=== PATIENT | female | born 1960 | race Hispanic/Latino ===

== ENCOUNTER 2018-02-28 18:51 | Emergency (ER) | payer MEDICARE ==
[~2018-02-28] VITALS: Ht 160 cm; Wt 75.7 kg
[~2018-02-28 18:51] MED LIST: ASPIRIN81 MG PO; CARVEDILOL12.5 MG PO; FUROSEMIDE40 MG PO; HUMALOG100 UNIT/3 SQ; HYDRALAZINE HCL25 MG PO; INSULIN DEGLUDEC; LIPITOR20 MG PO; LYRICA PO; PROCARDIA XL30 MG PO; RENVELA0.8 GM PO; VANCOMYCIN PO
[2018-02-28] MEDS ORDERED: ONDANSETRON HCL INJ 2 MG/ML VIAL IV STA (19:05)
[2018-02-28] MEDS ORDERED: MORPHINE SULFATE INJ 4 MG/ML INJ IV STA (19:05)
[2018-02-28 19:26] LABS: BASOPHILS % 0.3 % (0.0-1.0); EOSINOPHILS # (AUTO) 0.2 (0.0-0.4); EOSINOPHILS % 1.7 % (0.0-6.0); HEMOGLOBIN 11.9 g/dL (12.0-16.0); LYMPHOCYTES # (AUTO) 2.1 (1.0-3.2); LYMPHOCYTES % 22.5 % (18.0-39.1); MEAN CORPUSCULAR HEMOGLOBIN 32.1 pg (28-32); MEAN CORPUSCULAR VOLUME 94.3 fL (81-99); MONOCYTES # (AUTO) 0.5 (0.2-0.8); MONOCYTES % 5.2 % (4.4-11.3); NEUTROPHILS # (AUTO) 6.5 (2.1-6.9); NEUTROPHILS % 69.7 % (38.7-80.0); PLATELET COUNT 125 x10e3/uL (140-360); RED BLOOD COUNT 3.71 x10e6/uL (3.6-5.1); RED CELL DISTRIBUTION WIDTH 14.3 % (11.7-14.4)
[2018-02-28 19:29] LABS: CLARITY,URINE CLEAR (CLEAR); COLOR,URINE YELLOW (YELLOW)
[2018-02-28 19:30] LABS: INR 1.1; LEUKOCYTE ESTERASE ,URINE NEGATIVE (NEGATIVE); PROTHROMBIN TIME 13.4 seconds (11.9-14.5)
[2018-02-28 19:31] LABS: NITRITE,URINE NEGATIVE (NEGATIVE); PARTIAL THROMBOPLASTIN TIME 28.1 seconds (23.8-35.5); PROTEIN,URINE DIPSTICK 3+ (NEGATIVE)
[2018-02-28 19:32] LABS: BILIRUBIN,URINE NEGATIVE (NEGATIVE); KETONES,URINE NEGATIVE (NEGATIVE); URINE UROBILINOGEN 0.2 mg/dL (0.2 - 1)
[2018-02-28 19:35] LABS: BACTERIA,URINE FEW /HPF; EPITHELIAL CELLS,URINE FEW /LPF; WBC,URINE (MAN) 0-5 /HPF (0-5)
[2018-02-28 19:41] LABS: ALBUMIN 3.3 g/dL (3.5-5.0); ANION GAP 17.1 mmol/L (8-16); CALCIUM 8.1 mg/dL (8.4-10.2); CREATININE, SERUM 6.97 mg/dL (0.57-1.11); MAGNESIUM 1.7 MG/DL (1.3-2.1); POTASSIUM 4.1 mmol/L (3.5-5.1)
[2018-02-28 19:47] LABS: CREATINE KINASE MB 1.6 ng/mL (0-5.0)
[2018-02-28] MEDS ORDERED: FENTANYL CITRATE/PF 100MCG/2 ML INJ IV ONE (20:00)
--- NOTE | 2018-02-28 20:07 | Diagnostic Imaging Report ---
EXAM: CT ABDOMEN AND PELVIS without IV CONTRAST INDICATION: Abdominal pain, right flank pain COMPARISON: None TECHNIQUE: The abdomen and pelvis were scanned using a multidetector helical scanner. Coronal and sagittal reformations were obtained. Renal stone protocol performed. IV Contrast: None Oral Contrast: None CTDIvol has been reviewed. It is below the limits set by the Radiation Protocol Committee (RPC). FINDINGS: LOWER THORAX: Small bilateral pleural effusions with adjacent atelectasis. Partially visualized small pericardial effusion. LIVER: No masses BILIARY: Cholecystectomy. No abnormal ductal dilation. SPLEEN: No masses PANCREAS: No masses ADRENALS: No nodules RIGHT KIDNEY: Punctate nonobstructing stones versus vascular calcifications. No hydroureteronephrosis. Mild perinephric fat stranding. Questionable 3 cm lesion in the inferior pole of the right kidney versus lobulated contour. LEFT KIDNEY: Punctate nonobstructing stones versus basilar calcifications. No hydroureteronephrosis. Mild perinephric fat stranding. GI TRACT: No wall thickening or obstruction. Nonspecific debris within the stomach. The appendix is not identified. There is a round calcification in the cecum that could be calcification or prior oral contrast administration in a diverticulum. There are no inflammatory changes in the right lower quadrant to suggest acute appendicitis or diverticulitis. VESSELS: Moderate atherosclerotic changes of the abdominal aorta without aneurysm. PERITONEUM/RETROPERITONEUM: No free air or fluid LYMPH NODES: No lymphadenopathy REPRODUCTIVE ORGANS: Normal BLADDER: Decompressed, unremarkable. SOFT TISSUES: Normal BONES: No suspicious bone lesions. IMPRESSION: 1. Bilateral punctate nonobstructing renal stones versus vascular calcifications. No hydroureteronephrosis. 2. Small bilateral pleural effusions with adjacent atelectasis. 3. Questionable 3 cm lesion in the inferior pole of the right kidney versus lobulated renal contour. Nonemergent renal ultrasound is recommended for further evaluation. Signed by: Dr. Rena Willams M.D. on 02/28/2018 8:04 PM
--- NOTE | 2018-02-28 20:08 | Diagnostic Imaging Report ---
EXAM: CHEST SINGLE (PORTABLE), AP 1 view INDICATION: Abdominal pain, right flank pain COMPARISON: None FINDINGS: LINES/TUBES: None LUNGS: Bibasilar atelectasis. PLEURA: Small bilateral pleural effusions. HEART AND MEDIASTINUM: Normal size and contour. BONES AND SOFT TISSUES: No acute findings. IMPRESSION: Small bilateral pleural effusions and bibasilar atelectasis. Signed by: Dr. Rena Willams M.D. on 02/28/2018 8:05 PM
[2018-02-28] MEDS ORDERED: INSULIN REGULAR, HUMAN 100 UNIT/1 ML 3ML VIAL SQ ONE (20:30)
[2018-02-28 22:17] VITALS: BP 182/81
== END 2018-02-28 22:20 | disposition home or self-care (01) ==
LOC: ER 18:51
DX: R10.11 Right upper quadrant pain (principal); R11.0 Nausea; I12.0 Hypertensive chronic kidney disease with stage 5 chronic kidney disease or end stage renal disease; E11.22 Type 2 diabetes mellitus with diabetic chronic kidney disease; E11.65 Type 2 diabetes mellitus with hyperglycemia; Z99.2 Dependence on renal dialysis
CPT/HCPCS: 36415; 71045; 74176; 80053; 81001; 82150; 82550; 82553; 83690; 83735; 83880; 84484; 85025; 85610; 85730; 87086; 99284; J2405

== ENCOUNTER 2019-09-22 18:55 | Emergency (ER) | payer MEDICARE ==
[~2019-09-22] VITALS: Ht 160 cm; Wt 75.7 kg
--- OUTSIDE RECORDS SUMMARY | 2019-09-22 18:59 | XMS REPORT | Summary of Care ---
Author Author KAI MORENO N.P. Unknown Address Unknown Phone Unavailable Care Team Providers Care Fender Finisher Name Role Phone Kelley Rose MD Unavailable Unavailable Functional Status Name Dates Details Functional status health issues are not documented Status: Name Dates Details Cognitive status health issues are not documented Status: Problems Name Dates Details S/P CABG x 2 (V45.81, Z95.1) Status: Active Medications Name Dates Details Catapres 0.1 MG Oral Tablet M.A. Active Carvedilol TABS * Refills: 0 M.A. Active hydrALAZINE HCl TABS * Refills: 0 M.A. Active Atorvastatin Calcium TABS * Refills: 0 M.A. Active Aspirin 81 MG Oral Tablet Delayed Release * Refills: 0 M.A. Active NIFEdipine CAPS * Refills: 0 M.A. Active Digoxin TABS * Refills: 0 M.A. Active Probiotic TBEC * Refills: 0 M.A. Active Plavix 75 MG Oral Tablet * Refills: 0 M.A. Active Allergies and Adverse Reactions Name Dates Details No Known Drug Allergies (Allergy) Status: Active Past Medical History Name Dates Details History of Diabetes mellitus due to underlying condition with diabetic peripheral angiopathy and gangrene, with long-term current use of insulin (249.70, E08.52) Status: Resolved History of hypertension (V12.59, Z86.79) Status: Resolved History of kidney disease (V13.09, Z87.448) Status: Resolved Procedures Procedure Dates Details US Echocardiogram [id number] Date: 01-Jul-2019 History of Bypass graft Completed Immunization Name Dates Details Immunizations not documented Social History Name Dates Details - Status: Name Dates Details Former smoker Vital Signs Date Test Result Details [id number] BP Systolic 177 mm[Hg] Status: BP Diastolic 70 mm[Hg] Status: Height 63 in Status: Weight 155 lb Status: Body Mass Index Calculated 27.46 kg/m2 Status: Body Surface Area Calculated 1.74 m2 Status: Heart Rate 68 /min Status: O2 SAT 96 % Status: Results Date Description Value Details [id number] XRAY Chest 2 views [id number] Chest 2 views SEE NOTES Comments: EXAM: XR CHEST 2 VIEWSDATE: 07/01/2019 13:18 CSTINDICATION: Z95.1 Presence of aortocoronary bypass graft - Z95.1 Presenceof aortocoronary bypass graftCOMPARISON: 05/25TECHNIQUE: PA and lateral chest radiographsFINDINGS: Median sternotomy sutures. Moderate left pleural effusion with leftlower lobe atelectasis versus consolidation. Mild right pleural effusion.IMPRESSION: Median sternotomy sutures.Moderate left pleural effusion with left lower lobe atelectasis versusconsolidation. Mild right pleural effusion.--Read by: Tom Foreman MDDictated Date/time: 07/01/19 13:35Electronically Signed by: Tom Foreman MD 07/01/1913:36FINAL REPORT Plan of Care Name Dates Details Planned Observations Planned Goals not documented Instructions Name Dates Details Instructions not documented Encounters Appointment; KELLEY ROSE M.D. Encounter Diagnosis: Problem not documented On: 01-Jul-2019 12:00
[2019-09-22] MEDS ORDERED: DILTIAZEM HCL VIAL 5 ML ONE (19:42)
[2019-09-22] MEDS ORDERED: DILTIAZEM HCL 5 MG/ML 5 ML VIAL IV STA ×2 (19:44→20:05)
[2019-09-22 19:49] LABS: BASOPHILS % 0.5 % (0.0-1.0); EOSINOPHILS % 0.6 % (0.0-6.0); HEMATOCRIT 38.7 % (34.2-44.1); HEMOGLOBIN 12.6 g/dL (12.0-16.0); LYMPHOCYTES % 16.3 % (18.0-39.1); MEAN CORPUSCULAR HEMOGLOBIN 30.6 pg (28-32); MEAN CORPUSCULAR HGB CONC 32.6 g/dL (31-35); MEAN CORPUSCULAR VOLUME 93.9 fL (81-99); MONOCYTES # (AUTO) 0.5 (0.2-0.8); MONOCYTES % 7.4 % (4.4-11.3); NEUTROPHILS # (AUTO) 4.8 (2.1-6.9); NEUTROPHILS % 74.9 % (38.7-80.0); PLATELET COUNT 134 x10e3/uL (140-360); RED BLOOD COUNT 4.12 x10e6/uL (3.6-5.1); RED CELL DISTRIBUTION WIDTH 13.8 % (11.7-14.4)
[2019-09-22 20:06] LABS: ALBUMIN 2.8 g/dL (3.5-5.0); ALBUMIN/GLOBULIN RATIO 0.7 (0.8-2.0); ANION GAP 18.8 mmol/L (8-16); CREATININE, SERUM 4.64 mg/dL (0.57-1.11); POTASSIUM 3.8 mmol/L (3.5-5.1)
[2019-09-22 20:13] LABS: CREATINE KINASE MB 1.4 ng/mL (0-5.0)
--- NOTE | 2019-09-22 21:21 | Diagnostic Imaging Report ---
EXAMINATION: CHEST SINGLE (PORTABLE) COMPARISON: Chest x-ray 02/28/2018 INDICATION: Shortness of breath, palpitations ^a fib ^[id number] ^[id number] DISCUSSION: Frontal view of the chest obtained at 1 hours. HEART AND MEDIASTINUM: Cardiomegaly and cardiac bypass changes. LINES: None. LUNGS: Bibasilar groundglass airspace opacities, left lung greater than right. No interstitial edema. PLEURA: Blunting of the left lateral costophrenic angle. No pneumothorax BONES AND SOFT TISSUES: Median sternotomy wires are intact.. The soft tissues are normal. IMPRESSION: Cardiomegaly without evidence of CHF. Bibasilar airspace opacities suggestive of atelectasis or infiltrate. Blunting of the left costophrenic angle suggestive of pleural effusion. A small right pleural effusion cannot be excluded. Signed by: Dr. Wei Kemp MD on 09/22/2019 9:18 PM
[2019-09-22] MEDS ORDERED: AMIODARONE 900MG 500 ML IV STA (22:06)
[2019-09-23 01:17] VITALS: BP 166/54
== END 2019-09-23 02:10 | disposition home or self-care (01) ==
LOC: ER 18:55
DX: R00.2 Palpitations (principal); I48.0 Paroxysmal atrial fibrillation; E11.9 Type 2 diabetes mellitus without complications; Z99.2 Dependence on renal dialysis; I10 Essential (primary) hypertension; I25.10 Atherosclerotic heart disease of native coronary artery without angina pectoris
CPT/HCPCS: 36415; 71045; 80053; 82550; 82553; 84484; 85025; 93005; 96376; 99284

== ENCOUNTER 2020-07-25 10:00 | Inpatient (IN) | payer MEDICARE ==
[2020-07-25] VITALS (10 sets, daily range): BP systolic 114–142; BP diastolic 56–86
[~2020-07-25] VITALS: Ht 160 cm; Wt 75.7 kg
--- OUTSIDE RECORDS SUMMARY | 2020-07-25 10:06 | XMS REPORT | Clinical Summary ---
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 Active carvedilol (COREG) 25 MG Take 1 tablet 3 12/02 tablet by mouth 2 8 (two) times a day. Active furosemide (LASIX) 80 mg Take 1 tablet 0 02/08 tablet by mouth 2 8 (two) times a day. Active sevelamer (RENVELA) 800 Take 2,400 mg 0 mg tablet by mouth 3 (three) times a day. Active aspirin (ECOTRIN) 81 MG Take 81 mg by 0 enteric coated tablet mouth daily. Active insulin ASPART (NovoLOG) Inject 2-8 0 100 unit/mL injection Units under the skin 3 (three) times a day as needed. Active hydrALAZINE (APRESOLINE) Take 100 mg 0 100 MG tablet by mouth 2 (two) times a day. Active doxazosin (CARDURA) 4 MG Take 4 mg by 0 tablet mouth nightly. Active clonIDINE HCl (CATAPRES) Take 0.3 mg 3 03/29 0.3 MG tablet by mouth 9 every evening. Active clopidogrel (PLAVIX) 75 TAKE 1 TABLET 3 mg tablet BY MOUTH ONCE 9 DAILY FOR 30 DAYS Active Problems Problem Noted Date Other specified diabetes mellitus with diabetic chron ic kidney disease 06/07/2019 Renal mass 09/09/2018 ESRD (end stage renal disease) 09/09/2018 Hypertensive urgency 03/05/2018 Surgical History Surgery Date Site/Laterality Comments SECTION TONSILLECTOMY CHOLECYSTECTOMY DIALYSIS FISTULA [employer]ATION Medical History Medical History Date Comments Hypertension Dialysis patient (HCC) Diabetes mellitus (HCC) Social History Date Tobacco Use Types Packs/Day Years Used Never Smoker Smokeless Tobacco: Never Used Drinks/Week oz/Week Comments Alcohol Use No Sex Assigned at Date Recorded Not on file Last Filed Vital Signs Not on file Plan of Treatment Health Maintenance Due Date Last Done Comments DIABETES: RETINAL EYE 1968 EXAM DIABETIC FOOT EXAM 1968 CERVICAL CANCER SCREENING 12/15/1979 BREAST CANCER SCREENING 2008 COLONOSCOPY SCREENING 2008 SHINGLES VACCINES (#1) 2008 INFLUENZA VACCINE 03/24/2020 Results Not on fileafter 07/25/2019 Insurance Type Payer Benefit Subscriber ID Effective Phone Address Plan / Dates Group Medicare MEDICARE MEDICARE [id number] 2016- [place], PART [place] AND Present [place] Commercial AAR AAR [id number] 2017- SUPPLEMENT Present Advance Directives For more information, please contact: [phone] 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
--- OUTSIDE RECORDS SUMMARY | 2020-07-25 10:06 | XMS REPORT | Clinical Summary ---
Author Author [facility] Organization [facility] Address Unknown Phone Unavailable Care Team Providers Care Auto [employer] Salesperson Name Role Phone PCP Unavailable Allergies No Known Allergies Medications End Date Status Medication Sig Dispensed Refills Start Date Active ASPIRIN EC 81 mg delayed Take 1 tablet 30 tablet 3 release by mouth 5 tabletIndications: Type 2 daily. diabetes with nephropathy Active carvedilol (COREG) 12.5 Take 1 tablet 180 tablet 3 mg tabletIndications: HTN by mouth 2 5 (hypertension), benign times daily (with meals). Active azelastine (OPTIVAR) 0.05 Instill 1 6 mL 3 % ophthalmic Drop in each 5 solutionIndications: eye 2 times Allergic conjunctivitis, daily. unspecified laterality Active hydrALAZINE (APRESOLINE) Take 1 tablet 270 tablet 0 25 mg tabletIndications: by mouth 3 6 HTN (hypertension), times daily. benign Active atorvastatin (LIPITOR) 40 Take 1 tablet 30 tablet 0 03/05/201 mg tabletIndications: by mouth at 6 Type 2 diabetes with bedtime nephropathy nightly Please see PCP for further refills. Active cyclobenzaprine Take 1 tablet 30 tablet 0 03/26/20 1 (FLEXERIL) 10 mg by mouth 3 6 tabletIndications: Back times daily pain, unspecified back as needed for location, unspecified Muscle back pain laterality, Spasms. unspecified chronicity Active traMADol (ULTRAM) 50 mg Take 1 tablet 15 tablet 0 tabletIndications: Back by mouth 6 pain, unspecified back every 8 hours location, unspecified as needed for back pain laterality, Pain Use this unspecified chronicity medication as needed only if pain is unrelieved with Gabapentin and Flexeril.. Active NOVOLIN 70/30 100 unit/mL Inject 20 90 mL 1 (70-30) Units under 6 injectionIndications: the skin 2 Type 2 diabetes with times daily nephropathy (before meals). Active furosemide (LASIX) 40 mg Take 2 60 tablet 2 0 tabletIndications: Acute tablets by 6 on chronic diastolic mouth 2 times congestive heart failure daily. Active warfarin (COUMADIN) 7.5 Take 1 tablet 30 tablet 0 mg tabletIndications: by mouth 6 Thrombophlebitis daily (warfarin). Active polyethylene glycol Add lukewarm 4000 mL 0 05/18 (GOLYTELY) 236-22.74-6.74 drinking 6 -5.86 gram oral water to the solutionIndications: fill sher (4 Positive occult stool liters) and blood test shake. Drink as directed by your doctor.. Active sevelamer carbonate Take 4 110 tablet 1 (RENVELA) 800 mg tablet tablets by 6 mouth 3 times daily. Active gabapentin (NEURONTIN) Take 1 30 capsule 0 300 mg capsule by 6 capsuleIndications: mouth 3 times Peripheral neuropathic daily. pain Active Problems Problem Noted Date Positive occult stool blood test 05/18/2016 Type 2 diabetes mellitus with stage 4 chronic kidney disease, with 05/01/2016 long-term current use of insulin Thrombophlebitis 04/17/2016 Chest pain 04/05/2016 CHF (congestive heart failure) 04/02/2016 SOB (shortness of breath) 04/01/2016 Abnormal breast finding in 2004 05/28/2015 HTN (hypertension), benign 05/04/2015 Bilateral edema of lower extremity 05/04/2015 DM w/o complication type II 05/04/2015 CKD (chronic kidney disease) 05/04/2015 Preventative health care 05/04/2015 Congestive heart failure ESRD (end stage renal disease) Immunizations Name Administration Dates Next Due Pneumococcal 13-valent 03/26/2016 (Deferred: Contr aindication) conj 0.5 mL injection Family History Medical History Relation Name Comments Seizures Brother Stroke Brother Cancer Father Diabetes Father Hypertension Father Pulmonary Father Diabetes Mother Heart Mother Hypertension Mother Diabetes Sister Relation Name Status Comments Brother Alive Brother Alive Brother Daughter Alive Father Maternal Grandfather Maternal Grandmother Mother Paternal Grandfather Paternal Grandmother Sister Alive Sister Sister Son Alive Son Alive Social History Date Tobacco Use Types Packs/Day Years Used Never Smoker Smokeless Tobacco: Never Used Tobacco Cessation: Counseling Given: No Drinks/Week oz/Week Comments Alcohol Use 0 Standard drinks or equivalent 0.0 No Sex Assigned at Date Recorded Not on file Industry Job Start Date Occupation Not on file Not on file Not on file Travel End Travel History Travel Start No recent travel history available. Last Filed Vital Signs Not on file Plan of Treatment Health Maintenance Due Date Last Done Comments HPV Cervical Cancer Scrn 1988 Pap Cervical Cancer Scrn 11/04/2006 11/04/2001 Breast Cancer Scrn 06/08/2016 06/08/2015 (Yearly) DM Retinal Exam (Yearly) 08/29/2016 08/29/2015 DM Foot Exam (Yearly) 03/26/2017 03/26/2016 DM HGBA1C (Yearly) 03/27/2017 03/27/2016, 05/04/2015, 06/06/2003, Additional history exists Colorectal Cancer Scrn 05/14/2017 05/14/2016 Annual (FIT/FOBT) Age 50 to 75 DM Microalbumin Urine 06/27/2017 06/27/2016, Scrn (Yearly) 06/27/2016, 06/27/2016, Additional history exists Results Not on fileafter 07/25/2019 Insurance Type Payer Benefit Subscriber ID Effective Phone Address Plan / Dates Group MEDICARE MEDICARE xxxxxxxxxx 2016- [phone] [address] Present [id number] [place] [address] [employer] MEDICA[employer] HMO [employer] xxxxxxxxx 2016- [address] Present [address] [place] [id number] Advance Directives Date Inactivated Comments Code Status Date Activated 04/17/2016 4:48 PM Full Code 04/02/2016 4:05 AM
--- OUTSIDE RECORDS SUMMARY | 2020-07-25 10:06 | XMS REPORT | Clinical Summary ---
Author Author [facility] Address Unknown Phone Unavailable Care Team Providers Care Music Educator Name Role Phone Sharpless PCP Anna Crystal MD 24 Allergies Comments Active Allergy Reactions Severity Noted Date Morpholine Analogues 02/04/2017 Medications End Date Status Medication Sig Dispensed Refills Start Date Active hydrALAZINE (APRESOLINE) Take 100 mg 0 100 MG tablet by mouth 3 (three) times daily . Active sevelamer (RENVELA) 800 Take 3,200 mg 0 mg tablet by mouth 3 (three) times daily with meals. Active atorvastatin (LIPITOR) 40 Take 40 mg by 0 MG tablet mouth daily. Active amLODIPine (NORVASC) 10 Take 10 mg by 0 MG tablet mouth daily. Active furosemide (LASIX) 40 MG Take 80 mg by 0 tablet mouth 2 (two) times daily . Active carvedilol (COREG) 12.5 Take 25 mg by 0 05/14/ 201 MG tablet mouth 2 (two) 5 times daily . Active aspirin 81 MG EC tablet Take 81 mg by 0 mouth. 5 Active doxazosin (CARDURA) 4 MG Take 4 mg by 0 tablet mouth nightly. Active insulin aspart (NOVOLOG) Inject 8 0 100 unit/mL injection Units subcutaneousl y 3 (three) times daily before meals. Active pregabalin (LYRICA) 75 MG Take 75 mg by 0 capsule mouth 3 (three) times daily. Active insulin degludec (TRESIBA Inject 40 0 FLEXTOUCH U-100) 100 Units unit/mL (3 mL) InPn subcutaneousl y once at bedtime. Active Problems Problem Noted Date Pre-transplant evaluation for end stage renal disease 02/04/2017 ESRD (end stage renal disease) 02/04/2017 Diabetic nephropathy associated with type 2 diabetes mellitus 02/04/2017 HTN (hypertension), benign 02/04/2017 Coronary artery disease involving nez perce coronary art franko of nez perce heart 02/04/2017 without angina pectoris Proliferative diabetic retinopathy of both eyes witho ut macular edema 02/04/2017 associated with type 2 diabetes mellitu s Diabetic polyneuropathy associated with type 2 diabet es mellitus 02/04/2017 Hyperlipidemia, unspecified hyperlipidemia type 01/22 Encounters Care Team Description Date Type Specialty Ralph Layne RN 07/23/2020 Documentation Transplant Ya Mann 05/30/2020 Documentation Transplant Mary Jo Tobar RN Kidney Transplant Pre-evaluation 05/11/2020 Telephone Transplant Sharlene Leo Appointment (Patient called stating she is returning a call back. I let pt know that she was contacted by her coord nurse Mary Jo Tobar but that her vmailbox was full. Pt given coord direct #. ) 05/11/2020 Telephone Transplant Mary Jo Tobar RN Kidney Transplant Evaluation 05/09/2020 Telephone Transplant Siva Madrigal 05/03/2020 Documentation Transplant Sharlene Leo 05/02/2020 Abstract Transplant Pre-transplant evaluation fo r chronic kidney disease (Primary Dx) 05/01/2020 Video - Transplant Telemedicine Sharlene Leo Appointment (Pt called in saying she wa s not able to get into the renal txp education class. After 10 seconds on the phone, pt stated she was finally able to get in.) 05/01/2020 Telephone Transplant Sharlene Leo 04/09/2020 Documentation Transplant Sharlene Leo Appointment (Patient called in to resche dule her missed renal txp education class. Pt rescheduled for 05/01 class. Requested log-in instructions mailed to her home address on file. ) 04/09/2020 Telephone Transplant Sharlene Leo Appointment (Cld patient to reschedule r enal txp virtual education class. No answer. Voicemail box full. No way to leave vmail msg.) 04/03/2020 Telephone Transplant Sharlene Leo 03/21/2020 Abstract Transplant Sharlene Leo Appointment (Cld patient to reschedule r enal txp education class. No answer. Left detailed voicemail msg and call back number.) 03/20/2020 Telephone Transplant Crissy Leoly 03/13/2020 Abstract Transplant Sharlene Leo 03/13/2020 Documentation Transplant Sharlene Leo 03/13/2020 Documentation Transplant Lolly Rice 03/12/2020 Documentation Transplant Sharlene Leo 03/08/2020 Documentation Transplant Crissy Leoly 03/08/2020 Documentation Transplant Yaritza Leoberly 03/02/2020 Documentation Transplant Sharlene Leo Appointment (Pt returned my call and was scheduled for her virtual education class for 03/13/20. Also completed updated medical Hx, surgical Hx. Will send email instructions.) 03/01/2020 Telephone Transplant Sharlene Leo Appointment (Called pt's daughter to pas s on msg or assist with scheduling renal txp virtual eduction class. No answer. Left detailed voicemail msg and contact numbers.) 03/01/2020 Telephone Transplant Sharlene Leo Appointment (Called patient to schedule virtual education and consent class. No answer. Voicemail box is full. No way to leave message. Will call daughter.) 03/01/2020 Telephone Transplant Leo Sharlene 03/01/2020 Abstract Transplant after 07/25/2019 Family History Medical History Relation Name Comments Diabetes Brother Cancer Father Diabetes Father at 80 years ag e - sepsis Hypertension Father Throat cancer Diabetes Mother at 48 years wi th massive [place] Hypertension Mother Diabetes Sister Diabetes Son Hypertension Son Relation Name Status Comments Brother Alive Father Mother Sister Alive Son Social History Date Tobacco Use Types Packs/Day Years Used Quit: 02/04/1987 Former Smoker Cigarettes Drinks/Week oz/Week Comments Alcohol Use No Sex Assigned at Date Recorded Not on file Last Filed Vital Signs Reading Time Taken Comments Vital Sign - - Blood Pressure - - Pulse - - Temperature - - Respiratory Rate - - Oxygen Saturation - - Inhaled Oxygen Concentration 76.1 kg (167 lb 12.3 oz) 03/07/2020 8:31 AM CDT Weight 158 cm (5' 2.21") 03/07/2020 8:31 AM CDT Height 30.48 03/07/2020 8:31 AM CDT Body Mass Index Plan of Treatment Not on file Results Not on fileafter 07/25/2019 Insurance Type Payer Benefit Subscriber ID Effective Phone Address Plan / Dates Group Medicare MEDICARE MEDICARE A [id number] 2016- B Present [facility] SUPPLEMENT/INDIVIDUAL AARP/UNITE [id number] 2016-P [facility] [id number]
--- OUTSIDE RECORDS SUMMARY | 2020-07-25 10:06 | XMS REPORT | Continuity of Care Document ---
Author Author [facility] t Organization [facility] Address [address] [place] [id number] Phone Unavailable Care Team Providers Care Customer Service Correspondence Clerk Name Role Phone DELISA ENRIQUE PCP [phone] Roverto GUNTER, Ralph Attphys Unavailable Arya Mann Attphys Unavailable Ekaterina GUNTER, Mary Jo Attphys Unavailable Sharlene Leo Attphys Unavailable Siva Madrigal Attphys Unavailable Lolly Rice Attphys Unavailable NAIDA ANDERSEN Attphys Unavailable LOLLY ROSE M.D. Attphys Unavailable Dunia LANDAVERDE Attphys Unavailable LIO CONLEYAMIDCAMERON Attphys Unavailable Payers Payer Name Policy Type Policy Number Effective Date Expiration Date S charbel MEDICAREMEDICARE A [id number] 2015-PresentMedicare [id number] 2016 00:00:00 [facility] r MCR SUPPLEMENT/INDIVIDUALAARP/[id number] 2016-PresentMedigap [id number] 02-23-01 00:00:00 [facility] Medicare A & B [id number] 2016 00:00:00 [facility] [id number] 2016 00:00:00 [facility] Problems Condition Name Condition Details Condition Category Status Onset Date Resolution Date Last Treatment Date Treating Clinician Comments Source Other specified diabetes mellitus with diabetic chroni c kidney disease Other specified diabetes mellitus with diabetic chronic kidney disease Disease Active 2019-06-07 00:00:00 Deejay Mcgovern Renal mass Renal mass Disease Active 2018-09-09 00:00:00 Deejay Mcgovern Hypertensive urgency Hypertensive urgency Disease Active 00:00:00 Deejay Mcgovern Pre-transplant evaluation for end stage renal disease Pre-transplant evaluation for end stage renal disease Disease Active 2017-02-04 00:00:00 [facility] ESRD (end stage renal disease) ESRD (end stage renal disease) Disea se Active 2017-02-04 00:00:00 [facility] Diabetic nephropathy associated with type 2 diabetes m ellitus Diabetic nephropathy associated with type 2 diabetes mellitus Disease Active 2017-02-04 00:00:00 [facility] HTN (hypertension), benign HTN (hypertension), benign Disease Active 2017-02-04 00:00:00 [facility] Coronary artery disease involving [place] coronary artery of [place] heart without angina pectoris Coronary artery disease involving [place] coronary artery of [place] heart without angina pectoris Disease Active 2017-02-04 00:00:00 [facility] Proliferative diabetic retinopathy of [place] eyes without macular edema associated with type 2 diabetes mellitus Proliferative diabetic retinopathy of [place] eyes without macular edema associated with type 2 diabetes mellitus Disease Active 2017-02-04 00:00:00 [facility] Diabetic polyneuropathy associated with type 2 diabete s mellitus Diabetic polyneuropathy associated with type 2 diabetes mellitus Disease Acti ve 2017-02-04 00:00:00 [facility] Hyperlipidemia, unspecified hyperlipidemia type Hyperl ipidemia, unspecified hyperlipidemia type Disease Active 2017-02-04 00:00:00 [facility] Positive occult stool blood test Positive occult stool blood daniela t Disease Active 2016-05-18 00:00:00 [facility] 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, 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 HTN (hypertension), benign HTN (hypertension), benign Disease Active 2015-05-04 00:00:00 [facility] Bilateral edema of lower extremity Bilateral edema of lower extr emity Disease Active 2015-05-04 00:00:00 [facility] DM w/o complication type II DM w/o complication type II Disease Active 2015-05-04 00:00:[address] [facility] CKD (chronic kidney disease) CKD (chronic kidney disease) Disease Active 2015-05-04 00:00:[address] [facility] Preventative health care Preventative health care Disease Acti ve 2015-05-04 00:00:00 [facility] History of Diabetes mellitus due to unde rlying condition with diabetic peripheral angiopathy and gangrene, with long-term current use of insulin History of Diabetes mellitus due to underlying condition with diabetic peripheral angiopathy and gangrene, with long-term current use of insulin Problem Resolved [facility] History of hypertension History of hypertension Problem Resolved [facility] History of kidney disease History of kidney disease Problem Resolved [facility] S/P CABG x 2 S/P CABG x 2 Problem Active [facility] Anemia Anemia Problem Active [facility] Congestive heart failure Congestive heart failure Disease Active [facility] ESRD (end stage renal disease) ESRD (end stage renal disease) Disease Active [facility] Allergies, Adverse Reactions, Alerts Allergy Name Allergy Type Status Severity Reaction(s) Onset Date Inacti ve Date Treating Clinician Comments Source Morphine Allergy to Substance Active Mild HALLUCINATIONS 2017-04-03 00:00:00 [facility] Morphine Propensity to adverse reactions to drug Active Other (See Comments) 2017-04-03 00:00:00 [facility] Morpholine Analogues Propensity to adverse reactions to drug Active 2017-02-04 00:00:00 [facility] Morpholine Analogues Propensity to adverse reactions Active 2017-02-04 00:00:00 [facility] Family History Family Member Diagnosis Comments Start Date Stop Date Source Natural brother Diabetes [facility] Natural brother Seizures [facility] Natural brother Stroke [facility] Natural son Diabetes [facility] Natural son Hypertension [facility] Natural father Cancer [facility] Natural father Diabetes [facility] Natural father Hypertension [facility] Natural father Pulmonary [facility] Natural mother Diabetes [facility] Natural mother Heart [facility] Natural mother Hypertension [facility] Natural sister Diabetes [facility] Social History Social Habit Start Date Stop Date Quantity Comments Source Sex Assigned [facility] Tobacco use and exposure 2019-06-07 00:00:00 2019-06-07 00:00:00 Fab Mcgovern Alcohol intake 2016-06-27 00:00:00 2016-06-27 00:00:00 Current non-drinker of alcohol (finding) [facility] History of tobacco use 1987-02-04 00:00:00 Current smoker [facility] Smoking Status Start Date Stop Date Source Former smoker 2020-03-08 00:00:00 2020-03-08 00:00:00 [facility] Never smoker [facility] Medications Ordered Medication Name Filled Medication Name Start Date Stop Da te Current Medication? Ordering Clinician Indication Dosage Frequency Signature (SIG) Comments Components Source clonIDINE HCl (CATAPRES) 0.3 MG tablet 2019-03-29 00:00:00 Yes .3mg QD Take 0.3 mg by mouth every evening. Christine Mcgovern clopidogrel (PLAVIX) 75 mg tablet 2019-03-29 00:00:00 Yes TAKE 1 TABLET BY MOUTH ONCE DAILY FOR 30 DAYS H marietta Mcgovern sevelamer (RENVELA) 800 mg tablet 2018-09-29 15:43:52 Ye s 2400mg Q.[id number] Take 2,400 mg by mouth 3 (three) times a day. Deejay Mcgovern aspirin (ECOTRIN) 81 MG enteric coated tablet 2018-09-29 15:43:5 2 Yes 81mg QD Take 81 mg by mouth daily. Jory Mcgovern insulin ASPART (NovoLOG) 100 unit/mL injection 2018-09-29 15:43: 52 Yes 2U Q.[id number] Inject 2-8 Units under the s kin 3 (three) times a day as needed. Deejay Mcgovern hydrALAZINE (APRESOLINE) 100 MG tablet 2018-09-29 15:43:52 Yes 100mg Q.5D Take 100 mg by mouth 2 (two) times a day. Deejay Mcgovern doxazosin (CARDURA) 4 MG tablet 2018-09-29 15:43:52 Yes 4mg QD Take 4 mg by mouth nightly. Deejay Mcgovern atorvastatin (LIPITOR) 40 MG tablet 2018-02-09 00:00:00 Yes 1{tbl} QD Take 1 tablet by mouth nightly. Deejay Mcgovern furosemide (LASIX) 80 mg tablet 2018-02-08 00:00:00 Yes 1{tbl} Q.5D Take 1 tablet by mouth 2 (two) times a day. Jory Mcgovern carvedilol (COREG) 25 MG tablet 2017-12-02 00:00:00 Yes 1{tbl} Q.5D Take 1 tablet by mouth 2 (two) times a day. Jory Mcgovern hydrALAZINE (APRESOLINE) 100 MG tablet 2017-02-04 13:24:59 Yes 100mg Q.5576632127118902288L Take 100 mg by mouth 3 (three) times daily . [facility] sevelamer (RENVELA) 800 mg tablet 2017-02-04 12:52:45 Yes 3200mg Take 3,200 mg by mouth 3 (three) times daily with meals. [facility] atorvastatin (LIPITOR) 40 MG tablet 2017-02-04 12:52:45 Yes 40mg QD Take 40 mg by mouth daily. [facility] amLODIPine (NORVASC) 10 MG tablet 2017-02-04 12:52:45 Yes 10mg QD Take 10 mg by mouth daily. [facility] furosemide (LASIX) 40 MG tablet 2017-02-04 12:52:45 Yes 80mg Q.5D Take 80 mg by mouth 2 (two) times daily . [facility] doxazosin (CARDURA) 4 MG tablet 2017-02-04 12:52:45 Yes 4mg QD Take 4 mg by mouth nightly. [facility] insulin aspart (NOVOLOG) 100 unit/mL injection 2017-02-04 12:52: 45 Yes 8U Inject 8 Units subcutaneously 3 (three) times daily be fore meals. [facility] pregabalin (LYRICA) 75 MG capsule 2017-02-04 12:52:44 Ye s 75mg Q.[id number] Take 75 mg by mouth 3 (three) times daily. [facility] insulin degludec (TRESIBA FLEXTOUCH U-100) 100 unit/mL (3 mL ) InPn 2017-02-04 12:52:44 Yes 40U Inject 40 Units subcutaneousl y once at bedtime. [facility] gabapentin (NEURONTIN) 300 mg capsule 2016-06-27 00:00:00 Yes Peripheral neuropathic pain 300mg Take 1 capsule by mouth 3 times daily. [facility] sevelamer carbonate (RENVELA) 800 mg tablet 2016-05-30 00:00:00 Yes 3200mg Take 4 tablets by mouth 3 times daily. [facility] polyethylene glycol (GOLYTELY) 236-22.74-6.74 -5.86 gram ora l solution 2016-05-18 00:00:00 Yes Positive occult stool blood te Add [facility] drinking water to the fill sher (4 liters) and shake. Drink as directed by your doctor.. [facility] furosemide (LASIX) 40 mg tablet 2016-04-17 00:00:00 Yes Acute on chronic diastolic congestive heart failure 80mg Q.5D Take 2 tablets by mouth 2 times daily. [facility] warfarin (COUMADIN) 7.5 mg tablet 2016-04-17 00:00:00 Yes Thrombophlebitis 7.5mg QD Take 1 tablet by mouth daily (warfarin). [facility] NOVOLIN 70/30 100 unit/mL (70-30) injection 2016-03-27 00:00 :00 Yes Type 2 diabetes with nephropathy 20U Q.5D Inject 20 Unit s under the skin 2 times daily (before meals). [facility] cyclobenzaprine (FLEXERIL) 10 mg tablet 2016-03-26 00:00:00 Yes Back pain, unspecified back location, unspecified back pain laterality, unspecified chronicity 10mg Take 1 tablet by perla th 3 times daily as needed for Muscle Spasms. [facility] traMADol (ULTRAM) 50 mg tablet 2016-03-26 00:00:00 Yes Back pain, unspecified back location, unspecified back pain laterality, unspecified chronicity 50mg Take 1 tablet by perla th every 8 hours as needed for Pain Use this medication as needed only if pain is unrelieved with Gabapentin and Flexeril.. [facility] atorvastatin (LIPITOR) 40 mg tablet 2016-03-05 00:00:00 Yes Type 2 diabetes with nephropathy 40mg Take 1 tablet by mouth at bedtime nightly Please see PCP for further refills. [facility] hydrALAZINE (APRESOLINE) 25 mg tablet 2015-11-01 00:00:00 Yes HTN (hypertension), benign 25mg Take 1 tablet by mouth 3 times corin y. [facility] azelastine (OPTIVAR) 0.05 % ophthalmic solution 2015-06-28 0 0:00:00 Yes Allergic conjunctivitis, unspecified laterality 1[drp] Q.5D Instill 1 Drop in each eye 2 times daily. [facility] carvedilol (COREG) 12.5 MG tablet 2015-05-14 00:00:00 Yes 25mg Q.5D Take 25 mg by mouth 2 (two) times daily . I [facility] carvedilol (COREG) 12.5 mg tablet 2015-05-14 00:00:00 Yes HTN (hypertension), benign 12.5mg Take 1 tablet by mouth 2 times daily (with meals). [facility] aspirin 81 MG EC tablet 2015-05-04 00:00:00 Yes 81mg Take [address] [facility] ASPIRIN EC 81 mg delayed release tablet 2015-05-04 00:00:00 Yes Type 2 diabetes with nephropathy 81mg QD Take 1 tablet by mouth daily. [facility] Catapres 0.1 MG Oral Tablet Catapres 0.1 MG Oral Tablet Yes [facility] Carvedilol TABS Carvedilol TABS Yes [facility] hydrALAZINE HCl TABS hydrALAZINE HCl TABS Yes [facility]. [facility] Atorvastatin Calcium TABS Atorvastatin Calcium TABS Yes [facility].A. [facility] Aspirin 81 MG Oral Tablet Delayed Release Aspirin 81 M G Oral Tablet Delayed Release Yes [facility] NIFEdipine CAPS NIFEdipine CAPS Yes M.A. [facility] Digoxin TABS Digoxin TABS Yes [facility] Probiotic TBEC Probiotic TBEC Yes [facility].A. [facility] Plavix 75 MG Oral Tablet Plavix 75 MG Oral Tablet Yes M.A. [facility] Aspirin 81 Mg Tab.chew Aspirin 81 Mg Tab.chew Yes 81 Daily [facility] Atorvastatin Calcium (Lipitor) 20 Mg Tablet Atorvastat in Calcium (Lipitor) 20 Mg Tablet Yes 40 Daily [facility] Carvedilol 12.5 Mg Tablet Carvedilol 12.5 Mg Tablet Yes 25 Twice A Day [facility] Furosemide 40 Mg Tablet Furosemide 40 Mg Tablet Yes 40 Four Times Daily [facility] Hydralazine Hcl 25 Mg Tab Hydralazine Hcl 25 Mg Tab Yes 100 Three Times A Day [facility] Insulin Lispro (Humalog) 100 Unit/1 Ml Insuln.pen Insu alix Lispro (Humalog) 100 Unit/1 Ml Insuln.pen Yes 7 Three Times A Day [facility] Lyrica Lyrica Yes As Needed [facility] Nifedipine (Procardia Xl) 30 Mg Tab.er.24 Nifedipine ( Procardia Xl) 30 Mg Tab.er.24 Yes 60 Daily [facility] Sevelamer Carbonate (Renvela) 0.8 Gm Powd.pack Sevelam er Carbonate (Renvela) 0.8 Gm Powd.pack Yes 4 Three Times Daily With M eals [facility] Treseba Insulin Treseba Insulin Yes 40 Daily [facility] Vancomycin Vancomycin Yes 125 Daily [facility] Vital Signs Vital Name Observation Time Observation Value Comments Source Body height 2020-03-07 08:31:00 158 cm [facility] Body weight 2020-03-07 08:31:00 76.1 kg [facility] BMI 2020-03-07 08:31:00 30.48 kg/m2 [facility] BP Systolic 2019-07-01 15:06:00 177 mm[Hg] [facility] BP Diastolic 2019-07-01 15:06:00 70 mm[Hg] [facility] Height 2019-07-01 15:06:00 63 [in_us] [facility] Weight 2019-07-01 15:06:00 155 [lb_av] [facility] Body Mass Index Calculated 2019-07-01 15:06:00 27.46 kg/m2 [facility] Heart Rate 2019-07-01 15:06:00 68 /min [facility] O2 SAT 2019-07-01 15:06:00 96 % [facility] Procedures Procedure Date / Time Performed Performing Clinician Sour e US Echocardiogram [id number] 2019-07-01 00:00:00 [facility] History of Bypass graft [facility] Plan of Care Planned Activity Planned Date Details Comments Source Future Scheduled Test 2020-03-24 00:00:00 INFLUENZA VACCINE [code = INFLUENZA VACCINE] [facility] Scheduled Test 2017-06-27 00:00:00 Urine screening fo r protein (procedure) [code = 456056112] [facility] Scheduled Test 2017-05-14 00:00:00 Screening for craig gnant neoplasm of colon (procedure) [code = 716384141] [facility] Scheduled Test 2017-03-27 00:00:00 Hemoglobin A1c salma surement (procedure) [code = 59821993] [facility] Scheduled Test 2017-03-26 00:00:00 DM Foot Exam (Year ly) [code = DM Foot Exam (Yearly)] [facility] Scheduled Test 2016-08-29 00:00:00 DM Retinal Exam (Y early) [code = DM Retinal Exam (Yearly)] [facility] Scheduled Test 2016-06-08 00:00:00 Breast Cancer Scrn (Yearly) [code = Breast Cancer Scrn (Yearly)] [facility] Scheduled Test 2008 00:00:00 BREAST CANCER SCRE ENING [code = BREAST CANCER SCREENING] [facility] Future Scheduled Test 2008 00:00:00 COLONOSCOPY SCREEN ING [code = COLONOSCOPY SCREENING] [facility] Scheduled Test 2008 00:00:00 SHINGLES VACCINES (#1) [code = SHINGLES VACCINES (#1)] [facility] Scheduled Test 2006-11-04 00:00:00 Screening for craig gnant neoplasm of cervix (procedure) [code = 055620598] [facility] Scheduled Test 1988 00:00:00 Screening for craig gnant neoplasm of cervix (procedure) [code = 374357247] [facility] Scheduled Test 1979-12-15 00:00:00 Screening for craig gnant neoplasm of cervix (procedure) [code = 433667103] [facility] Scheduled Test 1968 00:00:00 DIABETES: RETINAL EYE EXAM [code = DIABETES: RETINAL EYE EXAM] [facility] Scheduled Test 1968 00:00:00 DIABETIC FOOT EXAM [code = DIABETIC FOOT EXAM] [facility] Encounters Start Date/Time End Date/Time Encounter Type Admission Type [facility] Care Department Encounter ID Source 2019-07-07 11:49:14 Outpatient [facility] [id number] [facility] 2019-06-10 21:22:00 Inpatient U [facility] [id number] [facility] 2019-06-10 18:09:59 Inpatient [facility] [id number] [facility] 2019-09-22 18:55:00 2019-09-23 02:10:00 Departed Emergency Room 1 GANESH NAIDA [facility] [id number] [facility] 2019-07-01 12:00:00 2019-07-01 12:00:00 Appointment; LOLLY ROSE M.D. NGUYEN, TUYEN, M.D. [facility] Cardiothoracic & Vascular [facility] [id number] [facility] 2019-06-09 18:38:00 2019-06-09 16:00:00 Inpatient E [facility] [id number] [facility] 2019-03-24 15:58:00 2019-03-24 15:58:00 Emergency E [facility] [id number] [facility] 2018-02-28 18:51:00 2018-02-28 22:20:00 Departed Emergency Room 1 PATRICK LANDAVERDE [facility] [id number] [facility] 2016-06-27 12:13:51 2016-06-27 12:13:51 Outpatient [facility] [id number] [facility] Results Test Description Test Time Test Comments Results Result Comments Source CHEST SINGLE (PORTABLE) 2019-09-22 21:17:00 [facility] [address] [place] [address] Patient Name: GABRIELA VAUGHAN MR #: [id number] : 1960 Age/Sex: 58/F Req #: [id number] Adm Physician: Ordered by: NAIDA ANDERSEN DO Report #: [id number] Location: ER Room/Bed: Procedure: [id number] DX/CHEST SINGLE (PORTABLE) Exam Date: 09/22/19 Exam Time: 2029 REPORT STATUS: Signed EXAMINATION: CHEST SINGLE (PORTABLE) COMPARISON: Chest x-ray 02/28/2018 INDICATION: Shortness of breath, palpitations a fib [id number] DISCUSSION: Frontal view of the chest obtained at 2041 hours. HEART AND MEDIASTINUM: Cardiomegaly and cardiac bypass changes. LINES: None. LUNGS: Bibasilar groundglass airspace opacities, left lung greater than right. No interstitial edema. PLEURA: Blunting of the left lateral costophrenic angle. No pneumothorax BONES AND SOFT TISSUES: Median sternotomy wires are intact.. The soft tissues are normal. IMPRESSION: Cardiomegaly without evidence of CHF. Bibasilar airspace opacities suggestive of atelectasis or infiltrate. Blunting of the left costophrenic angle suggestive of pleural effusion. A small right pleural effusion cannot be excluded. Signed by: Dr. Gamaliel Rutherford MD on 09/22/2019 9:18 PM Dictated By: GAMALIEL RUTHERFORD MD 17 Transcribed By: THAO on 09/22/192117 COPY TO: NAIDA ANDERSEN DO Creatine Kinase MB 2019-09-22 20:21:00 Test Item Creatine Kinase MB (test code = 24004-7) 1.40 0-5.0 [facility] [id number] 20:21:00* Test Item Value Reference Range Interpretation Comments Troponin I (test code = DYF6716) 0.009 0-0.300 [facility] [id number] 20:07:00* Test Item Value Reference Range Interpretation Comments Sodium Level (test code = 2951-2) 139 136-145 [facility]assium [id number] 20:07:00* Test Item Value Reference Range Interpretation Comments Potassium Level (test code = 2823-3) 3.8 3.5-5.1 [facility] HospitalChloride [id number] 20:07:00* Test Item Value Reference Range Interpretation Comments Chloride Level (test code = 2075-0) 98 98-107 [facility] HospitalCarbon Dioxide [id number] 20:07:00* Test Item Value Reference Range Interpretation Comments Carbon Dioxide Level (test code = 2028-9) 26 22-29 [facility] HospitalAnion [id number] 20:07:00* Test Item Value Reference Range Interpretation Comments Anion Gap (test code = 08038-5) 18.8 8-16 H [facility] Hospital[facility] Urea [id number] 20:07:00* Test Item Value Reference Range Interpretation Comments Blood Urea Nitrogen (test code = 3094-0) 29 7-26 H [facility] HospitalCreatinine2020-01-30 20:07:00* Test Item Value Reference Range Interpretation Comments Creatinine (test code = 2160-0) 4.64 0.57-1.11 H [facility] HospitalBUN/Creatinine [id number] 20:07:00* Test Item Value Reference Range Interpretation Comments BUN/Creatinine Ratio (test code = 3097-3) 6 6-25 [facility] HospitalEstimat Glomerular Filtration Rate 2019-09-22 20:07:00* Test Item Value Reference Range Interpretation Comments Estimat Glomerular Filtration Rate (test code = 106335559) 10 >60 L Ranges were taken from the National Kidney Disease Education Program and the [facility] Kidney Foundation literature.Reference ranges:60 or greater: Lihhsq51-02 ( for 3 consecutive months): Chronic kidney disease 15 or less: Kidney failureCHI Detar Healthcare SystemGlucose Zkyob6338-69-00 20:07:00* Test Item Value Reference Range Interpretation Comments Glucose Level (test code = APA7623) 312 74-118 H [facility] HospitalCalcium [id number] 20:07:00* Test Item Value Reference Range Interpretation Comments Calcium Level (test code = 76359-6) 9.0 8.4-10.2 [facility] HospitalTotal [id number] 20:07:00* Test Item Value Reference Range Interpretation Comments Total Bilirubin (test code = 1975-2) 0.4 0.2-1.2 [facility] HospitalAspartate Amino Transf (AST/SGOT) 2019-09-22 20:07:00* Test Item Value Reference Range Interpretation Comments Aspartate Amino Transf (AST/SGOT) (test code = Aspartate Amino Transf (AST/SGOT)) 11 5-34 [facility] HospitalAlanine Aminotransferase (ALT/SGPT) 2019-09-22 20:07:00* Test Item Value Reference Range Interpretation Comments Alanine Aminotransferase (ALT/SGPT) (test code = 1742-6) 8 0-55 [facility] HospitalTotal Caxhoaj4992-47-23 20:07:00* Test Item Value Reference Range Interpretation Comments Total Protein (test code = 2885-2) 6.8 6.5-8.1 [facility] HospitalAlbumin2020-01-30 20:07:00* Test Item Value Reference Range Interpretation Comments Albumin (test code = 1751-7) 2.8 3.5-5.0 L [facility] HospitalGlobulin2020-01-30 20:07:00* Test Item Value Reference Range Interpretation Comments Globulin (test code = 53127-5) 4.0 2.3-3.5 H [facility] HospitalAlbumin/Globulin Rumkv1880-80-24 20:07:00 * Test Item Value Reference Range Interpretation Comments Albumin/Globulin Ratio (test code = 1759-0) 0.7 0.8-2.0 L [facility] HospitalAlkaline Ktdfqmqwnyt6199-69-10 20:07:00* Test Item Value Reference Range Interpretation Comments Alkaline Phosphatase (test code = 6768-6) 86 40-150 [facility] HospitalCreatine Fwlgew1768-79-74 20:07:00* Test Item Value Reference Range Interpretation Comments Creatine Kinase (test code = 2157-6) 71 29-168 [facility] HospitalWhite Blood Aoajq8966-23-92 19:52:00* Test Item Value Reference Range Interpretation Comments White Blood Count (test code = 6690-2) 6.39 4.8-10.8 [facility] HospitalRed Blood Siydr1755-18-92 19:52:00* Test Item Value Reference Range Interpretation Comments Red Blood Count (test code = 789-8) 4.12 3.6-5.1 [facility] HospitalHemoglobin2020-01-30 19:52:00* Test Item Value Reference Range Interpretation Comments Hemoglobin (test code = 00779-2) 12.6 12.0-16.0 [facility] HospitalHematocrit2020-01-30 19:52:00* Test Item Value Reference Range Interpretation Comments Hematocrit (test code = 4544-3) 38.7 34.2-44.1 [facility] HospitalMean Corpuscular Rjgfwg8862-64-17 19:52:00* Test Item Value Reference Range Interpretation Comments Mean Corpuscular Volume (test code = 787-2) 93.9 81-99 [facility] HospitalMean Corpuscular Yphokmxuse8869-99-22 19:52:00* Test Item Value Reference Range Interpretation Comments Mean Corpuscular Hemoglobin (test code = 785-6) 30.6 28-32 [facility] HospitalMean Corpuscular Hemoglobin Concent 2019-09-22 19:52:00* Test Item Value Reference Range Interpretation Comments Mean Corpuscular Hemoglobin Concent (test code = 786-4) 32.6 31-35 [facility] HospitalRed Cell Distribution Arkxs5571-58-72 19:52:00* Test Item Value Reference Range Interpretation Comments Red Cell Distribution Width (test code = 07875-3) 13.8 11.7 -14.4 [facility] HospitalPlatelet Eihdi4587-97-48 19:52:00* Test Item Value Reference Range Interpretation Comments Platelet Count (test code = 777-3) 134 140-360 L [facility] HospitalNeutrophils (%) (Auto)2019-09-22 19:52:00 * Test Item Value Reference Range Interpretation Comments Neutrophils (%) (Auto) (test code = 89212-8) 74.9 38.7-80.0 [facility] HospitalLymphocytes (%) (Auto)2019-09-22 19:52:00 * Test Item Value Reference Range Interpretation Comments Lymphocytes (%) (Auto) (test code = 736-9) 16.3 18.0-39.1 L [facility] HospitalMonocytes (%) (Auto)2019-09-22 19:52:00* Test Item Value Reference Range Interpretation Comments Monocytes (%) (Auto) (test code = 5905-5) 7.4 4.4-11.3 [facility] HospitalEosinophils (%) (Auto)2019-09-22 19:52:00 * Test Item Value Reference Range Interpretation Comments Eosinophils (%) (Auto) (test code = 713-8) 0.6 0.0-6.0 [facility] HospitalBasophils (%) (Auto)2019-09-22 19:52:00* Test Item Value Reference Range Interpretation Comments Basophils (%) (Auto) (test code = 706-2) 0.5 0.0-1.0 [facility] HospitalIM GRANULOCYTES %2019-09-22 19:52:00* Test Item Value Reference Range Interpretation Comments IM GRANULOCYTES % (test code = IM GRANULOCYTES %) 0.3 0.0- 1.0 [facility] HospitalNeutrophils # (Auto)2019-09-22 19:52:00* Test Item Value Reference Range Interpretation Comments Neutrophils # (Auto) (test code = 751-8) 4.8 2.1-6.9 [facility] HospitalLymphocytes # (Auto)2019-09-22 19:52:00* Test Item Value Reference Range Interpretation Comments Lymphocytes # (Auto) (test code = 60662-9) 1.0 1.0-3.2 [facility] HospitalMonocytes # (Auto)2019-09-22 19:52:00* Test Item Value Reference Range Interpretation Comments Monocytes # (Auto) (test code = 742-7) 0.5 0.2-0.8 [facility] HospitalEosinophils # (Auto)2019-09-22 19:52:00* Test Item Value Reference Range Interpretation Comments Eosinophils # (Auto) (test code = 711-2) 0.0 0.0-0.4 [facility] HospitalBasophils # (Auto)2019-09-22 19:52:00* Test Item Value Reference Range Interpretation Comments Basophils # (Auto) (test code = 704-7) 0.0 0.0-0.1 [facility] HospitalAbsolute Immature Granulocyte (auto 2019-09-22 19:52:00* Test Item Value Reference Range Interpretation Comments Absolute Immature Granulocyte (auto (daniela t code = Absolute Immature Granulocyte (auto) 0.02 0-0.1 [facility] HospitalXRAY Chest 2 views [id number] 13:18:00EXAM: XR CHEST 2 VIEWSDATE: 07/01/2019 13:18 CSTINDICATION: [...] Signed by: Tom Foreman MD 07/01/1913:36FINAL REPORT [facility] PELVIS CHLIJVWS2223-21-63 12:14:00 Name: GABRIELA VAUGHAN [facility] : 1960 Age/S: 57 / F [address] [facility] Unit #: [id number] Loc: [place] [address] Phys: Solitario Green MD Acct: [id number] Di s Date: Status: REG CLI PHONE #: [phone] Exam Date: 12/08/2018 1140 FAX #: [phone] Reason: R10.2 EXAMS: CPT CODE: [id number] US PELVIS COM PLETE 12819 HISTORY: Pelvic pain. COMPARISON: None available. Transabdominal and transvag inal (for better endometrial and ovarian evaluation) pelvic ultrasound: Anteverted uterus measured 7.7 x 4.3 x 5 cm. Endometrium is poorly visible at 6.7 mm and is abnormal for postmenopausal woman (should me asure less than 5 mm). Coarse calcifications of the uterus. Fibroid in the uterine body towards the right anteriorly measuring 2 cm. Visualized port ions of the cervix are normal. Color and Doppler flow in either ov josh with normal spectral waveform. Left ovary measured 3.1 x 1.6 x 2.9 cm. Right ovary measured 3.3 x 2.2 x 2.8 cm. Trace pelvic free fluid. IMPRESSION: Poorly visualized uterus. Endometrium is also poorly visible at 6.7 mm and is thickened for postmenopausal woman (should measure less than 5 mm). Fibroid measured 2 cm in the anterior l ower right uterine body. Color and Doppler flow in either ovar y. Trace free fluid. Electronically Signed by Alejandro Roberts on 0 12/08/2018 at 1214 Reported and signed by: Zeeshan Roberts M.D. CC: Solitario Green Technologist: ROBERTO ZAMORANO RT(R),RDMS Trnscb Date /Time: 12/08/2018 (1214) tIVETHR.TH4 Orig Print D/T: S: (1217) Probe: PAGE 1 Si gned Report - US TRANSVAGINAL NON [id number] 12:14:00 Name: GABRIELA VAUGHAN [facility] : 1960 Age/S: 57 / F [address] [facility] Unit #: [id number] Loc: [place] [address] Phys: Solitario Green MD Acct: [id number] Dis Date: Status: REG CLI PHONE #: [phone] Exam Date: 12/08/2018 1140 FAX #: [phone] Reason: EXAMS: CPT CODE: [id number] [place] [address] HISTORY: Pelvic pain. COMPARISON: None available. Transabdominal and transvaginal (for better endometrial and ovarian evaluation) pelvic ultrasound: Anteverted uterus measured 7.7 x 4.3 x 5 cm. Endometrium is poorly visible at 6.7 mm and is abnormal for postmenopausal woman (should measure less than 5 mm). Coarse calcifications of the uterus. Fibroid in the uterine body towards the right anteriorly measuring 2 cm. Visualized portions of the cervix are normal. Color and Doppler flow in either ovary with normal spectral waveform. Left ovary measured 3.1 x 1.6 x 2.9 cm. Right ovary measured 3.3 x 2.2 x 2.8 cm. Trace pelvic free fluid. IMPRESSION: Poorly visualized uterus. Endometrium is also poorly visible at 6.7 mm and is thickened for postmenopausal woman (should measure less than 5 mm). Fibroid measured 2 cm in the anterior l ower right uterine body. Color and Doppler flow in either ovar y. Trace free fluid. Electronically Signed by Alejandro Roberts on 0 12/08/2018 at 1214 Reported and signed by: Zeeshan Roberts M.D. CC: Solitario Green Technologist: ROBERTO ZAMORANO RT(R),RD Trnscb Date /Time: 12/08/2018 (1214) t.SALR.TH4 Orig Print D/T: S: (6597) Probe: [id number] PAGE 1 Si gned Report CHEST SINGLE (PORTABLE)2018-02-28 20:04:00 [place] [address] Patient Name: GABRIELA VAUGHAN MR #: [id number] : 1960 Age/Sex: 57/F Req #: [id number] Adm Physician: Ordered by: RONAN GARAY IT SECURITY CONSULTANT Report #: [id number] Location: ER Room/Bed: Procedure: [id number] DX/CHEST SINGLE (PORTABLE) E xam Date: 02/28/18 Exam Time: 1937 REPORT STATU S: Signed EXAM: CHEST SINGLE (PORTABLE), AP 1 view INDICATION: Abdominal pa in, right flank pain COMPARISON: None FINDINGS: LINES/TUBES: None LUNGS: Bibasilar atelectasis. PLEURA: Small bilateral pleural effusions. HEART AND MEDIASTINUM: Normal size and contour. BONES AND SOFT TISSUES: No acute findings. IMPRESSION: Small bilateral pleural effusions and bi basilar atelectasis. Signed by: Dr. Keke Willams M.D. on 02/29/20 8:05 PM Dictated By: KEKE WILLAMS MD 04 Transcribed By: THAO on 02/28/182004 COPY TO: RONAN GARAY IT SECURITY CONSULTANT B-Type Natriuretic Glrjbvu9720-04-60 19:53:00* Test Item Value Reference Range Interpretation Comments B-Type Natriuretic Peptide (test code = 35749-4) 1373.2 0-100 H [facility] HospitalCreatine Kinase KQ7895-72-09 19:53:00* Test Item Value Reference Range Interpretation Comments Creatine Kinase MB (test code = 80650-4) 1.60 0-5.0 [facility] HospitalTroponin O4879-79-86 19:53:00* Test Item Value Reference Range Interpretation Comments Troponin I (test code = NLG7487) 0.013 0-0.300 [facility]landodium Mlemn9160-21-28 19:46:00* Test Item Value Reference Range Interpretation Comments Sodium Level (test code = 2951-2) 133 136-145 L [facility] HospitalPotassium Skole3613-02-50 19:46:00* Test Item Value Reference Range Interpretation Comments Potassium Level (test code = 2823-3) 4.1 3.5-5.1 [facility] HospitalChloride Ajezi8113-69-89 19:46:00* Test Item Value Reference Range Interpretation Comments Chloride Level (test code = 2075-0) 93 98-107 L [facility] HospitalCarbon Dioxide Opydj9445-99-95 19:46:00* Test Item Value Reference Range Interpretation Comments Carbon Dioxide Level (test code = 2028-9) 27 22-29 [facility] HospitalAnion Tdj1989-27-19 19:46:00* Test Item Value Reference Range Interpretation Comments Anion Gap (test code = 90314-4) 17.1 8-16 H [facility] HospitalBlood Urea Kvjbsrkg0621-78-56 19:46:00* Test Item Value Reference Range Interpretation Comments Blood Urea Nitrogen (test code = 3094-0) 45 7-26 H [facility] HospitalCreatinine2018-07-08 19:46:00* Test Item Value Reference Range Interpretation Comments Creatinine (test code = 2160-0) 6.97 0.57-1.11 H [facility] HospitalBUN/Creatinine Ltynl9702-77-97 19:46:00* Test Item Value Reference Range Interpretation Comments BUN/Creatinine Ratio (test code = 3097-3) 6 6-25 [facility] HospitalEstimat Glomerular Filtration Rate 2018-02-28 19:46:00* Test Item Value Reference Range Interpretation Comments Estimat Glomerular Filtration Rate (test code = 09418-5) 6 >60 L Ranges were taken from the National Kidney Disease Education Program and the [facility] Kidney Foundation literature.Reference ranges:60 or greater: Jblmpe65-97 ( for 3 consecutive months): Chronic kidney disease 15 or less: Kidney failureCHI Detar Healthcare SystemGlucose Irjix0414-60-36 19:46:00* Test Item Value Reference Range Interpretation Comments Glucose Level (test code = QPO2645) 474 74-118 HH Results called to Maryann/LYRIC at 1944 on 02/28/18 by Mason Monge. RB [place].[facility] HospitalCalcium Zjgzh8957-76-23 19:46:00* Test Item Value Reference Range Interpretation Comments Calcium Level (test code = 42742-5) 8.1 8.4-10.2 L [facility] HospitalMagnesium Mbler4603-18-91 19:46:00* Test Item Value Reference Range Interpretation Comments Magnesium Level (test code = 78165-4) 1.7 1.3-2.1 [facility] HospitalTotal Iofspimkk2767-46-05 19:46:00* Test Item Value Reference Range Interpretation Comments Total Bilirubin (test code = 1975-2) 0.7 0.2-1.2 [facility] HospitalAspartate Amino Transf (AST/SGOT) 2018-02-28 19:46:00* Test Item Value Reference Range Interpretation Comments Aspartate Amino Transf (AST/SGOT) (test code = Aspartate Amino Transf (AST/SGOT)) 14 5-34 [facility] HospitalAlanine Aminotransferase (ALT/SGPT) 2018-02-28 19:46:00* Test Item Value Reference Range Interpretation Comments Alanine Aminotransferase (ALT/SGPT) (test code = 1742-6) 14 0-55 [facility] HospitalTotal Hpfuslk4139-68-70 19:46:00* Test Item Value Reference Range Interpretation Comments Total Protein (test code = 2885-2) 6.7 6.5-8.1 [facility] HospitalAlbumin2018-07-08 19:46:00* Test Item Value Reference Range Interpretation Comments Albumin (test code = 1751-7) 3.3 3.5-5.0 L [facility] HospitalGlobulin2018-07-08 19:46:00* Test Item Value Reference Range Interpretation Comments Globulin (test code = 61260-8) 3.4 2.3-3.5 [facility] HospitalAlbumin/Globulin Btbsy9653-49-26 19:46:00 * Test Item Value Reference Range Interpretation Comments Albumin/Globulin Ratio (test code = 1759-0) 1.0 0.8-2.0 [facility] HospitalAlkaline Mixtllntskg7785-23-74 19:46:00* Test Item Value Reference Range Interpretation Comments Alkaline Phosphatase (test code = 6768-6) 152 40-150 H [facility] HospitalCreatine Gmlgda0726-25-54 19:46:00* Test Item Value Reference Range Interpretation Comments Creatine Kinase (test code = 2157-6) 164 29-168 [facility] HospitalAmylase Oluvb8940-70-08 19:46:00* Test Item Value Reference Range Interpretation Comments Amylase Level (test code = 1798-8) 26 25-125 [facility] HospitalLipase2018-07-08 19:46:00* Test Item Value Reference Range Interpretation Comments Lipase (test code = 3040-3) 22 8-78 [facility] HospitalCT ABDOMEN/PELVIS KV5258-88-20 19:46:00 [facility] [address] [place] [address] Patient Name: GABRIELA VAUGHAN MR #: [id number] : Age/Sex: 57/F Req #: [id number] Adm Physician: Ordered by: RONAN GARAY IT SECURITY CONSULTANT Report #: [id number] Location: ER Room/Be d: Procedure: [id number] CT/CT ABDOMEN/PELVIS WO Exam Date: 02/28/18 Exam Time: 1935 REPORT STATUS: Signed EXAM: CT ABDOMEN AND PELVIS without IV CONTRAST INDICATION: Abdomin al pain, right flank pain COMPARISON: None TECHNIQUE: The abdomen and pelv is were scanned using a multidetector helical scanner. Coronal and sagittal re formations were obtained. Renal stone protocol performed. IV Contrast: None Oral Contrast: None CTDIvol has been reviewed. It is below the limits set by the Radiation Protocol Committee (RPC). FINDINGS: LOWER THORAX: Small bilateral pleural effusions with adjacent atelectasis. Partially visualized sm all pericardial effusion. LIVER: No masses BILIARY: Cholecystectomy. No a bnormal ductal dilation. SPLEEN: No masses PANCREAS: No masses ADRE NALS: No nodules RIGHT KIDNEY: Punctate nonobstructing stones versus vascul ar calcifications. No hydroureteronephrosis. Mild perinephric fat stranding. Q uestionable 3 cm lesion in the inferior pole of the right kidney versus lobula kieran contour. LEFT KIDNEY: Punctate nonobstructing stones versus basilar mateus cifications. No hydroureteronephrosis. Mild perinephric fat stranding. GI TRACT: No wall thickening or obstruction. Nonspecific debris within the stoma ch. The appendix is not identified. There is a round calcification in the cecu m that could be calcification or prior oral contrast administration in a diver ticulum. There are no inflammatory changes in the right lower quadrant to sugg est acute appendicitis or diverticulitis. VESSELS: Moderate atheroscleroti c changes of the abdominal aorta without aneurysm. PERITONEUM/RETROPERITONEU M: No free air or fluid LYMPH NODES: No lymphadenopathy REPRODUCTIVE ORGA NS: Normal BLADDER: Decompressed, unremarkable. SOFT TISSUES: Normal BARAK MEL: No suspicious bone lesions. IMPRESSION: 1. Bilateral punctate non obstructing renal stones versus vascular calcifications. No hydroureteronephro sis. 2. Small bilateral pleural effusions with adjacent atelectasis. 3 . Questionable 3 cm lesion in the inferior pole of the right kidney versus lob ulated renal contour. Nonemergent renal ultrasound is recommended for further evaluation. Signed by: Dr. Keke Willams M.D. on 02/28/2018 8:04 PM Dictated By: KEKE WILLAMS MD 03 Transcribed By: THAO on 02/28/182003 COPY TO: RONAN GARAY IT SECURITY CONSULTANT Urine MXT1556-92-81 19:35:00* Test Item Value Reference Range Interpretation Comments Urine WBC (test code = 5821-4) 0-5 0-5 [facility] HospitalUrine QNM4086-18-19 19:35:00* Test Item Value Reference Range Interpretation Comments Urine RBC (test code = 47294-4) 6-10 0-5 H [facility] HospitalUrine Qstsavag9626-13-25 19:35:00* Test Item Value Reference Range Interpretation Comments Urine Bacteria (test code = 11734-0) FEW NONE [facility] HospitalUrine Epithelial Evcvm6464-67-75 19:35:00 * Test Item Value Reference Range Interpretation Comments Urine Epithelial Cells (test code = 28203-0) FEW NONE [facility] HospitalProthrombin Qqrz5066-56-06 19:34:00* Test Item Value Reference Range Interpretation Comments Prothrombin Time (test code = 5902-2) 13.4 11.9-14.5 [facility] HospitalProthromb Time International Ratio 2018-02-28 19:34:00* Test Item Value Reference Range Interpretation Comments Prothromb Time International Ratio (test code = 6301-6) 1.10 Oral Anticoagulant Therapy INR Values:1. Low Intensity Therapy 1.5 - 2.02 . Moderate Intensity Therapy 2.0 - 3.03. High Intensity Therapy(1) 2.5 - 3. 54. High Intensity Therapy(2) 3.0 - 4.05. Panic Value INR > 5.0 [facility] HospitalActivated Partial Thromboplast Time 2018-02-28 19:34:00* Test Item Value Reference Range Interpretation Comments Activated Partial Thromboplast Time (test code = 08710-8) 28.1 23.8-35.5 [facility] HospitalUrine Bwvvy5411-20-77 19:33:00* Test Item Value Reference Range Interpretation Comments Urine Color (test code = 5778-6) YELLOW YELLOW [facility] HospitalUrine Eympwob3305-76-30 19:33:00* Test Item Value Reference Range Interpretation Comments Urine Clarity (test code = 95224-7) CLEAR CLEAR [facility] HospitalUrine Specific Vinibrh2350-03-88 19:33:00 * Test Item Value Reference Range Interpretation Comments Urine Specific [place] (test code = 5811-5) 1.015 1.010-1.02 5 [facility] HospitalUrine aT2725-24-91 19:33:00* Test Item Value Reference Range Interpretation Comments Urine pH (test code = 08689-8) 8 5-7 H [facility] HospitalUrine Leukocyte Zdmmxqeu2140-95-05 19:33:00* Test Item Value Reference Range Interpretation Comments Urine Leukocyte Esterase (test code = 5799-2) NEGATIVE NEGATIVE [facility] HospitalUrine Dyicrbk6842-74-97 19:33:00* Test Item Value Reference Range Interpretation Comments Urine Nitrite (test code = 74379-4) NEGATIVE NEGATIVE [facility] HospitalUrine Krgwpft7322-47-87 19:33:00* Test Item Value Reference Range Interpretation Comments Urine Protein (test code = 5804-0) 3+ NEGATIVE H [facility] HospitalUrine Glucose (UA)2018-02-28 19:33:00* Test Item Value Reference Range Interpretation Comments Urine Glucose (UA) (test code = 2349-9) 3+ NEGATIVE H [facility] HospitalUrine Crrydfk5484-86-99 19:33:00* Test Item Value Reference Range Interpretation Comments Urine Ketones (test code = 06046-7) NEGATIVE NEGATIVE [facility] HospitalUrine Zzqyyvphjizf8879-87-64 19:33:00* Test Item Value Reference Range Interpretation Comments Urine Urobilinogen (test code = 23958-2) 0.2 0.2-1 [facility] HospitalUrine Vaasbnixm2574-64-44 19:33:00* Test Item Value Reference Range Interpretation Comments Urine Bilirubin (test code = 1978-6) NEGATIVE NEGATIVE [facility] HospitalUrine Swxih5438-61-27 19:33:00* Test Item Value Reference Range Interpretation Comments Urine Blood (test code = 51625-1) TRACE NEGATIVE H [facility] HospitalWhite Blood Wvcjn6937-80-74 19:30:00* Test Item Value Reference Range Interpretation Comments White Blood Count (test code = 6690-2) 9.30 4.8-10.8 [facility] HospitalRed Blood Zljhr7675-20-07 19:30:00* Test Item Value Reference Range Interpretation Comments Red Blood Count (test code = 789-8) 3.71 3.6-5.1 [facility] HospitalHemoglobin2018-07-08 19:30:00* Test Item Value Reference Range Interpretation Comments Hemoglobin (test code = 86876-1) 11.9 12.0-16.0 L [facility] HospitalHematocrit2018-07-08 19:30:00* Test Item Value Reference Range Interpretation Comments Hematocrit (test code = 4544-3) 35.0 34.2-44.1 [facility] HospitalMean Corpuscular Axmdhg4153-07-92 19:30:00* Test Item Value Reference Range Interpretation Comments Mean Corpuscular Volume (test code = 787-2) 94.3 81-99 [facility] HospitalMean Corpuscular Acivgdfacy9014-37-80 19:30:00* Test Item Value Reference Range Interpretation Comments Mean Corpuscular Hemoglobin (test code = 785-6) 32.1 28-32 H [facility] HospitalMean Corpuscular Hemoglobin Concent 2018-02-28 19:30:00* Test Item Value Reference Range Interpretation Comments Mean Corpuscular Hemoglobin Concent (test code = 786-4) 34.0 31-35 [facility] HospitalRed Cell Distribution Wegog6386-44-03 19:30:00* Test Item Value Reference Range Interpretation Comments Red Cell Distribution Width (test code = 91639-2) 14.3 11.7 -14.4 [facility] HospitalPlatelet Hkgbo4790-71-78 19:30:00* Test Item Value Reference Range Interpretation Comments Platelet Count (test code = 777-3) 125 140-360 L [facility] HospitalNeutrophils (%) (Auto)2018-02-28 19:30:00 * Test Item Value Reference Range Interpretation Comments Neutrophils (%) (Auto) (test code = 42097-4) 69.7 38.7-80.0 [facility] HospitalLymphocytes (%) (Auto)2018-02-28 19:30:00 * Test Item Value Reference Range Interpretation Comments Lymphocytes (%) (Auto) (test code = 736-9) 22.5 18.0-39.1 [facility] HospitalMonocytes (%) (Auto)2018-02-28 19:30:00* Test Item Value Reference Range Interpretation Comments Monocytes (%) (Auto) (test code = 5905-5) 5.2 4.4-11.3 [facility] HospitalEosinophils (%) (Auto)2018-02-28 19:30:00 * Test Item Value Reference Range Interpretation Comments Eosinophils (%) (Auto) (test code = 713-8) 1.7 0.0-6.0 [facility] HospitalBasophils (%) (Auto)2018-02-28 19:30:00* Test Item Value Reference Range Interpretation Comments Basophils (%) (Auto) (test code = 706-2) 0.3 0.0-1.0 [facility] %2018-02-28 19:30:00* Test Item Value Reference Range Interpretation Comments IM GRANULOCYTES % (test code = IM GRANULOCYTES %) 0.6 0.0- 1.0 [facility]Neutrophils # (Auto)2018-02-28 19:30:00* Test Item Value Reference Range Interpretation Comments Neutrophils # (Auto) (test code = 751-8) 6.5 2.1-6.9 [facility]Lymphocytes # (Auto)2018-02-28 19:30:00* Test Item Value Reference Range Interpretation Comments Lymphocytes # (Auto) (test code = 26302-9) 2.1 1.0-3.2 [facility] # (Auto)2018-02-28 19:30:00* Test Item Value Reference Range Interpretation Comments Monocytes # (Auto) (test code = 742-7) 0.5 0.2-0.8 [facility]Eosinophils # (Auto)2018-02-28 19:30:00* Test Item Value Reference Range Interpretation Comments Eosinophils # (Auto) (test code = 711-2) 0.2 0.0-0.4 [facility] # (Auto)2018-02-28 19:30:00* Test Item Value Reference Range Interpretation Comments Basophils # (Auto) (test code = 704-7) 0.0 0.0-0.1 [facility]Absolute Immature Granulocyte (auto 2018-02-28 19:30:00* Test Item Value Reference Range Interpretation Comments Absolute Immature Granulocyte (auto (daniela t code = Absolute Immature Granulocyte (auto) 0.06 0-0.1 [facility]URINE [id number] 12:52:00* Test Item Value Reference Range Interpretation Comments CULTURE (BEAKER) (test code = 1095) >100,000 col/mL skin monique CYTOMEGALOVIRUS ANTIBODY, [id number] 14:40:00* Test Item Value Reference Range Interpretation Comments CYTOMEGALOVIRUS IGG ANTIBODY (BEAKER) (test code = 790) Positive CYTOMEGALOVIRUS ANTIBODY, [id number] 14:40:00* Test Item Value Reference Range Interpretation Comments CYTOMEGALOVIRUS IGM ANTIBODY (BEAKER) (test code = 816) Negative EBV-VCA ANTIBODY, [id number] 14:40:00* Test Item Value Reference Range Interpretation Comments SHEILA-ODOM VCA IGG (BEAKER) (test code = 983) Positive EBV-VCA ANTIBODY, [id number] 14:40:00* Test Item Value Reference Range Interpretation Comments SHEILA-OODM VCA IGM (BEAKER) (test code = 984) Negative VARICELLA ZOSTER ANTIBODY, [id number] 14:16:00* Test Item Value Reference Range Interpretation Comments VARICELLA ZOSTER IGG (AL) (BEAKER) (test code = 3197) > Al VARICELLA ZOSTER RESULT INTERPRETATIONS: <=0.8 Al Nonreactive: Presumed non-immune to VZV 0.9-1.0 Al Equivocal >=1.1 Al Reactive: Presumed immune to [id number] 11:54:00* Test Item Value Reference Range Interpretation Comments RPR SCREEN (BEAKER) (test code = 420) Nonreactive Nonreactive HEPATITIS B SURFACE [id number] 17:54:00* Test Item Value Reference Range Interpretation Comments HEPATITIS B SURFACE ANTIBODY (BEAKER) (test code = 647) 4254.3 mIU/ mL <8.0 H HEPATITIS B SURFACE [id number] 17:13:00* Test Item Value Reference Range Interpretation Comments HEPATITIS B SURFACE ANTIGEN (2) (BEAKER) (test code = 2585) Nonreactive Nonreactive URINALYSIS W/ [id number] 16:48:00* Test Item Value Reference Range Interpretation Comments COLOR (BEAKER) (test code = 470) Light Yellow CLARITY (BEAKER) (test code = 469) Clear SPECIFIC GRAVITY UA (BEAKER) (test code = 468) 1.007 1.001-1 .035 PH UA (BEAKER) (test code = 467) 8.0 5.0-8.0 PROTEIN UA (BEAKER) (test code = 464) 300 mg/dL Negative A GLUCOSE UA (BEAKER) (test code = 365) 100 mg/dL Negative A KETONES UA (BEAKER) (test code = 371) Negative Negative BILIRUBIN UA (BEAKER) (test code = 462) Negative Negative BLOOD UA (BEAKER) (test code = 461) Negative Negative NITRITE UA (BEAKER) (test code = 465) Negative Negative LEUKOCYTE ESTERASE UA (BEAKER) (test code = 466) Negative Negat ronen UROBILINOGEN UA (BEAKER) (test code = 463) 0.2 mg/dL 0.2-1.0 RBC UA (BEAKER) (test code = 519) < /HPF WBC UA (BEAKER) (test code = 520) 2 /HPF SQUAMOUS EPITHELIAL (BEAKER) (test code = 516) 2 /HPF SOURCE(BEAKER) (test code = 2795) HEPATITIS B CORE ANTIBODY, [id number] 15:20:00* Test Item Value Reference Range Interpretation Comments HEPATITIS B CORE IGM ANTIBODY (BEAKER) (test code = 645) Non reactive Nonreactive HEPATITIS C [id number] 15:20:00* Test Item Value Reference Range Interpretation Comments HEPATITIS C ANTIBODY (BEAKER) (test code = 367) Nonreactive Nonrea ctive HIV-1 ANTIGEN WITH HIV-1/2 [id number] 15:20:00* Test Item Value Reference Range Interpretation Comments HIV-1 ANTIGEN WITH HIV 1\T\2 ANTIBODY (2) (BEAKER) (te st code = 2586) Nonreactive Nonreactive HEMOGLOBIN [id number] 15:01:00* Test Item Value Reference Range Interpretation Comments HEMOGLOBIN A1C (BEAKER) (test code = 368) 7.6 % 4.3-6.1 H PTH, [id number] 14:59:00* Test Item Value Reference Range Interpretation Comments PARATHYROID HORMONE INTACT (BEAKER) (test code = 577) 302.5 pg/mL 8.5-72.5 H Effective 07/11/2014: Reference Range ChangeNew: 8.5-72.5 Previous: 15.0-90.0 COMPREHENSIVE METABOLIC [id number] 14:57:00* Test Item Value Reference Range Interpretation Comments TOTAL PROTEIN (BEAKER) (test code = 770) 7.1 gm/dL 6.0-8.3 ALBUMIN (BEAKER) (test code = 1145) 3.8 g/dL 3.5-5.0 ALKALINE PHOSPHATASE (BEAKER) (test code = 346) 129 U/L 40-150 BILIRUBIN TOTAL (BEAKER) (test code = 377) 0.5 mg/dL 0.2-1.2 SODIUM (BEAKER) (test code = 381) 140 meq/L 136-145 POTASSIUM (BEAKER) (test code = 379) 4.8 meq/L 3.5-5.1 CHLORIDE (BEAKER) (test code = 382) 103 meq/L 98-107 CO2 (BEAKER) (test code = 355) 21 meq/L 22-29 L BLOOD UREA NITROGEN (BEAKER) (test code = 354) 71 mg/dL 7-21 H CREATININE (BEAKER) (test code = 358) 7.95 mg/dL 0.57-1.25 H GLUCOSE RANDOM (BEAKER) (test code = 652) 88 mg/dL 70-105 CALCIUM (BEAKER) (test code = 697) 8.4 mg/dL 8.4-10.2 AST (SGOT) (BEAKER) (test code = 353) 14 U/L 5-34 ALT (SGPT) (BEAKER) (test code = 347) 19 U/L 6-55 EGFR (BEAKER) (test code = 1092) 5 mL/min/1.73 sq m ESTIMATED GFR IS NOT ACCURATE CREATININE CLEARANCE IN PREDICTING GLOMERULAR FILTRATION RATE. ESTIMATED GFR IS NOT APPLICABLE FOR DIALYSIS PATIENTS. URIC [id number] 14:54:00* Test Item Value Reference Range Interpretation Comments URIC ACID (BEAKER) (test code = 773) 5.2 mg/dL 2.6-7.2 [id number] 14:54:00* Test Item Value Reference Range Interpretation Comments PHOSPHORUS (BEAKER) (test code = 604) 5.4 mg/dL 2.3-4.7 H GAMMA GLUTAMYL TRANSFERASE (GGT)2017-01-07 14:54:00* Test Item Value Reference Range Interpretation Comments GAMMA GLUTAMYL TRANSFERASE (BEAKER) (test code = 364) 21 U/L 9-64 LACTATE DEHYDROGENASE (LDH)2017-01-07 14:54:00* Test Item Value Reference Range Interpretation Comments LACTATE DEHYDROGENASE (BEAKER) (test code = 635) 189 U/L 125-2 20 [id number] 14:41:00* Test Item Value Reference Range Interpretation Comments PROTIME (BEAKER) (test code = 759) 12.2 seconds 11.7-14.7 INR (BEAKER) (test code = 370) 0.9 <=5.9 PARTIAL THROMBOPLASTIN TIME (BEAKER) (test code = 760) 28.3 seconds 22.5-36.0 RECOMMENDED COUMADIN/WARFARIN INR THERAPY RANGESSTANDARD DOSE: 2.0 - 3.0 Inclu elisha: PROPHYLAXIS for venous thrombosis, systemic embolization; TREATMENT for floyd ous thrombosis and/or pulmonary embolus.HIGH RISK: Target INR is 2.5-3.5 for pat ients with mechanical heart valves.CBC W/PLT COUNT & AUTO [id number] 14:35:00* Test Item Value Reference Range Interpretation Comments WHITE BLOOD CELL COUNT (BEAKER) (test code = 775) 9.1 K/ L 4.0- 10.0 RED BLOOD CELL COUNT (BEAKER) (test code = 761) 3.61 M/ L 4.00-5 .00 L HEMOGLOBIN (BEAKER) (test code = 410) 12.5 GM/DL 12.0-15.0 HEMATOCRIT (BEAKER) (test code = 411) 36.4 % 36.0-45.0 MEAN CORPUSCULAR VOLUME (BEAKER) (test code = 753) 101.0 fL 82. 0-99.0 H MEAN CORPUSCULAR HEMOGLOBIN (BEAKER) (test code = 751) 34.5 pg 27.0-33.0 H MEAN CORPUSCULAR HEMOGLOBIN CONC (BEAKER) (test code = 752) 34.3 GM/DL 32.0-36.0 RED CELL DISTRIBUTION WIDTH (BEAKER) (test code = 412) 12.0 % 10.3-14.2 PLATELET COUNT (BEAKER) (test code = 756) 124 K/CU MM 150-430 L MEAN PLATELET VOLUME (BEAKER) (test code = 754) 12.4 fL 6.5-10 .5 H NUCLEATED RED BLOOD CELLS (BEAKER) (test code = 413) 0 /100 WBC 0 -0 NEUTROPHILS RELATIVE PERCENT (BEAKER) (test code = 429) 56 % LYMPHOCYTES RELATIVE PERCENT (BEAKER) (test code = 430) 37 % MONOCYTES RELATIVE PERCENT (BEAKER) (test code = 431) 5 % EOSINOPHILS RELATIVE PERCENT (BEAKER) (test code = 432) 2 % BASOPHILS RELATIVE PERCENT (BEAKER) (test code = 437) 1 % NEUTROPHILS ABSOLUTE COUNT (BEAKER) (test code = 670) 5.07 K/ L 1.80-8.00 LYMPHOCYTES ABSOLUTE COUNT (BEAKER) (test code = 414) 3.35 K/ L 1.48-4.50 MONOCYTES ABSOLUTE COUNT (BEAKER) (test code = 415) 0.49 K/ L 0. 00-1.30 EOSINOPHILS ABSOLUTE COUNT (BEAKER) (test code = 416) 0.14 K/ L 0.00-0.50 BASOPHILS ABSOLUTE COUNT (BEAKER) (test code = 417) 0.06 K/ L 0. 00-0.20 0.00
[2020-07-25] MEDS ORDERED: DILTIAZEM HCL 5 MG/ML 5 ML VIAL IV STA (10:09)
[2020-07-25] MEDS ORDERED: SODIUM CHLORIDE 0.9% 500ML 500 ML IV STA (10:09)
--- NOTE | 2020-07-25 10:09 | Emergency Department Note ---
History of Present Illnes History of Present Illness Chief Complaint: General Medicine Complaints History of Present Illness This is a 59 year old female Chief Complaint Comment Patient in from dialysis via EMS with reports of rapid heart rate that started at the end of her dialysis treatment. Per EMS report, the patient had 9 minutes left in her dialysis treatment when her heart began to race. EMS reported a heart rate of 190bpm, A-Fib with RVR. Patient was given 20mg of Cardizem IV by EMS and that brought her rate down to the 126 we see in triage. EKG performed that showed A- Fib w RVR. Patient reports a history of open heart surgery and a-fib and was reportedly on amiodarone but stopped taking it on her own "months ago". 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 Arrival Mode: [facility] Treatment TRACK HOE OPERATOR: IV, See EMS Report Additional Treatment TRACK HOE OPERATOR: Cardizem 20mg IV Forester Aide Required: No Onset (how long ago): hour(s) Location: Heart Quality: palpitations Radiation: Reports non-radiation Severity: mild Onset quality: sudden Duration (how long): hour(s) (1) Timing of current episode: constant Progression: unchanged Chronicity: new Context: Denies recent illness, Denies recent surgery Relieving factors: none Exacerbating factors: none Associated symptoms: Reports denies other symptoms Treatments prior to arrival: none Past Medical/Family History Physician Review I have reviewed the patient's past medical and family history. Any updates have been documented here. 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 Other Last Tetanus: UTD Review of Systems Review of Systems Constitutional: Reports no symptoms EENTM: Reports no symptoms Cardiovascular: Reports as per HPI, Reports palpitations Respiratory: Reports no symptoms Gastrointestinal: Reports no symptoms Genitourinary: Reports no symptoms Musculoskeletal: Reports no symptoms Integumentary: Reports no symptoms Neurological: Reports no symptoms Psychological: Reports no symptoms Endocrine: Reports no symptoms Hematological/Lymphatic: Reports no symptoms Physical Exam Related Data Allergies: Coded Allergies: morphine (Verified Allergy, Mild, HALLUCINATIONS, 04/03/17) Triage Vital Signs Vital Signs Date Time Temp Pulse Resp B/P (MAP) Pulse Ox O2 Delivery O2 Flow Rate FiO2 07/25/20 10:02 123 18 141/48 100 Room Air Vital signs reviewed: Yes Physical Exam CONSTITUTIONAL Constitutional: Present well-developed, Present well-nourished HENT HENT: Present normocephalic, Present atraumatic, Present oropharynx clear/moist, Present nose normal HENT L/R: Present left ext ear normal, Present right ext ear normal EYES Eyes: Reports PERRL, Reports conjunctivae normal NECK Neck: Present ROM normal PULMONARY Pulmonary: Present effort normal, Present breath sounds normal CARDIOVASCULAR Cardiovascular: Present irregular rhythm, Present heart sounds normal, Present capillary refill normal, Present tachycardia GASTROINTESTINAL Abdominal: Present soft, Present nontender, Present bowel sounds normal GENITOURINARY Genitourinary: Present exam deferred SKIN Skin: Present warm, Present dry MUSCULOSKELETAL Musculoskeletal: Present ROM normal NEUROLOGICAL Neurological: Present alert, Present oriented x 3, Present no gross motor or sensory deficits PSYCHOLOGICAL Psychological: Present mood/affect normal, Present judgement normal Results Laboratory Lab results reviewed: Yes Imaging Imaging results reviewed: Yes Diagnostics Tests Diagnostic test(s) reviewed: Yes Procedures 12 Lead ECG Interpretation ECG Interpretation : ECG: ECG 1 Forester Aide: Interpreted by ED physician Date: Jul 25, 2020 Prior ECG tracings: reviewed Rhythm: atrial fibrillation Rate: tachycardia BPM: 108 QRS axis: right T wave inversion: II, III, aVF, V5, V6 Clinical Impression: abnormal ECG Assessment & Plan Medical Decision Making MDM 59 y.o F presents for a-fib RVR after dialysis. Examination shows atrial fibrillation with RVR. Bowel signs otherwise stable and within acceptable limits. Cardiopulmonary work obtained. She was given 20 mg of ties him en route and was given 5 mg in the emergency department as well as 500 mL normal saline bolus. 300mg Amiodarone, 20mg lopressor and HR still 100-120. Dr. Chavarria to admit and requests metoprolol 25mg BID. Consulted Dr. Arya mahmood and [facility] cardiology. Reassessment Reassessment time: 14:05 Reassessment Patient comfortable. Assessment & Plan Final Impression: (1) Atrial fibrillation with RVR Depart Disposition: ADMITTED Last Vital Signs Date Time Temp Pulse Resp B/P (MAP) Pulse Ox O2 Delivery O2 Flow Rate FiO2 07/25/20 10:02 123 18 141/48 100 Room Air Home Meds Reported Medications Nifedipine (PROCARDIA XL) 30 Mg Tab.er.24, 60 MG PO DAILY, #30 TAB 2 Refills 04/10/17 [Vancomycin] No Conflict Check, 125 MG PO DAILY, #10 0 Refills 04/10/17 [Lyrica] No Conflict Check, PO PRN 03/05/17 Atorvastatin Calcium (LIPITOR) 20 Mg Tablet, 40 MG PO DAILY, #30 TAB 03/05/17 Sevelamer Carbonate (RENVELA) 0.8 Gm Powd.pack, 4 TAB PO TIDWM 03/05/17 Insulin Lispro (HUMALOG) 100 Unit/1 Ml Insuln.pen, 7 UNITS SQ TID 03/05/17 [Treseba Insulin] No Conflict Check, 40 MG DAILY 03/05/17 Carvedilol (CARVEDILOL) 12.5 Mg Tablet, 25 MG PO BID, #60 TAB 03/05/17 Furosemide (FUROSEMIDE) 40 Mg Tablet, 40 MG PO QID, #30 TAB 03/05/17 Aspirin (ASPIRIN) 81 Mg Tab.chew, 81 MG PO DAILY 03/05/17 Hydralazine Hcl (HYDRALAZINE HCL) 25 Mg Tab, 100 MG PO TID, TAB 03/05/17 CARLOTTA JESUS MD Jul 25, 2020 10:09
[2020-07-25] MEDS ORDERED: METOPROLOL TARTRATE INJ 1 MG/ML VIAL IV PRN (10:15)
[2020-07-25 10:22] LABS: BASOPHILS % 0.4 % (0.0-1.0); EOSINOPHILS # (AUTO) 0.1 (0.0-0.4); EOSINOPHILS % 0.7 % (0.0-6.0); HEMATOCRIT 28.8 % (34.2-44.1); HEMOGLOBIN 9.4 g/dL (12.0-16.0); LYMPHOCYTES # (AUTO) 1.6 (1.0-3.2); LYMPHOCYTES % 17.3 % (18.0-39.1); MEAN CORPUSCULAR HEMOGLOBIN 31.8 pg (28-32); MEAN CORPUSCULAR HGB CONC 32.6 g/dL (31-35); MEAN CORPUSCULAR VOLUME 97.3 fL (81-99); MONOCYTES # (AUTO) 0.8 (0.2-0.8); MONOCYTES % 8.5 % (4.4-11.3); NEUTROPHILS # (AUTO) 6.6 (2.1-6.9); NEUTROPHILS % 72.8 % (38.7-80.0); PLATELET COUNT 83 x10e3/uL (140-360); RED BLOOD COUNT 2.96 x10e6/uL (3.6-5.1)
--- NOTE | 2020-07-25 10:43 | Diagnostic Imaging Report ---
EXAMINATION: CHEST SINGLE (PORTABLE) INDICATION: Chest pain COMPARISON: Chest radiograph 09/22/2019 FINDINGS: LINES/TUBES:EKG leads overlie the chest. LUNGS:There is left basilar opacity silhouetting the left charles diaphragm. PLEURA:No pleural effusion or pneumothorax. MEDIASTINUM:The cardiomediastinal silhouette appears normal in size and shape. Atherosclerotic calcifications of the thoracic aorta. BONES/SOFT TISSUES:No acute osseous injury. ABDOMEN:No free air under the diaphragm. IMPRESSION: Left basilar opacity, more likely subsegmental atelectasis than superimposed aspiration or pneumonia. Signed by: Sterling Arriaza MD on 07/25/2020 10:40 AM
[2020-07-25] MEDS ORDERED: AMIODARONE HCL 150MG 100 ML IV STA ×2 (10:51→11:51)
[2020-07-25] MEDS ORDERED: AMIODARONE HCL 150MG 100 ML ONE (12:17)
[2020-07-25] MEDS ORDERED: METOPROLOL TARTRATE INJ 1 MG/ML VIAL IV ONE ×2 (12:45→13:00)
[2020-07-25] MEDS: METOPROLOL TARTRATE INJ 1 MG/ML VIAL IV PRN ×2 (13:25→14:00)
[2020-07-25 14:00] LABS: ALBUMIN 3.1 g/dL (3.5-5.0); ALBUMIN/GLOBULIN RATIO 0.8 (0.8-2.0); ANION GAP 18.4 mmol/L (8-16); CALCIUM 7.8 mg/dL (8.4-10.2); CREATININE, SERUM 4.36 mg/dL (0.57-1.11); POTASSIUM 3.4 mmol/L (3.5-5.1)
--- NOTE | 2020-07-25 15:20 | Diagnostic Imaging Report ---
EXAMINATION: TOES RIGHT MIN 2 VIEWS INDICATION: Toe pain COMPARISON: None FINDINGS: Nondisplaced acute metaphyseal fracture at the base of the fifth metatarsal. No additional fractures identified. Alignment remains anatomic. No substantial degenerative change. IMPRESSION: Acute nondisplaced base of fifth metatarsal fracture. Signed by: Sterling Arriaza MD on 07/25/2020 3:17 PM
[2020-07-25] MEDS ORDERED: PROCARDIA XL30 MG (16:01)
[2020-07-25] MEDS ORDERED: ELIQUIS2.5 MG PO (16:02)
[2020-07-25] MEDS ORDERED: MINOXIDIL2.5 MG PO (16:03)
[2020-07-25] MEDS: METOPROLOL SUCCINATE 25 MG TAB XL PO SCH (16:07)
--- NOTE | 2020-07-25 17:53 | Consultation ---
DATE OF CONSULTATION: Pulmonary Critical Care Consultation CHIEF COMPLAINT: Atrial fibrillation in a dialysis patient. HISTORY OF PRESENT ILLNESS: The patient is a 59-year-old woman. She has end-stage renal disease and has dialysis. Apparently, she was starting her dialysis treatment today when she noticed some palpitations. She was found to have tachycardia to a rate of 190. She was subsequently brought to the emergency department in an atrial fibrillation with rapid ventricular response. She received Cardizem followed by amiodarone and was subsequently started on amiodarone drip. She now feels better and heart rate is in the 110 range. She is not complaining of chest pain. She denies any fever. PAST SURGICAL HISTORY: 1. Status post coronary artery bypass grafting. 2. Status post cholecystectomy. 3. Status post dialysis access placement. PAST MEDICAL HISTORY: 1. Hypertension. 2. Diabetes. 3. Atrial fibrillation. 4. End-stage renal disease. SOCIAL HISTORY: The patient is not an active smoker. She is not an active drinker. ALLERGIES: THE PATIENT IS ALLERGIC TO MORPHINE. FAMILY HISTORY: Noncontributory. REVIEW OF SYSTEMS: No fever. No headache. No neck pain. She is not complaining of chest pain. She did note palpitations. She has no dyspnea. She is not having any cough. There is no nausea or vomiting. PHYSICAL EXAMINATION: VITAL SIGNS: Blood pressure is 133/83, saturation is 96% on room air, and the pulse is now 110 to 120. HEENT: Shows no facial swelling or erythema. LYMPHATIC: Shows no submandibular, cervical, or supraclavicular adenopathy. CARDIAC: Reveals irregularly irregular rhythm as noted above. Normal S1 and S2. LUNGS: Auscultation of lungs reveals decreased breath sounds at the bases. There is no wheezing. ABDOMEN: Soft and nontender. There is no rebound or guarding. EXTREMITIES: Show no leg edema or calf tenderness. There is no cyanosis or clubbing. SKIN: Shows no rashes. NEUROLOGICAL: Shows no focal abnormalities. LABORATORY DATA: White blood cell count is 9.11, hemoglobin is 9.4, and the platelet count is 83. The BUN to creatinine ratio is 37 to 4.36 and the potassium is 3.4. Other electrolytes are within normal limits. RADIOGRAPHIC DATA: Chest x-ray shows left base opacities suggestive of subsegmental aspiration, atelectasis. IMPRESSION: 1. Atrial fibrillation with rapid ventricular response. 2. End-stage renal disease. 3. Diabetes. 4. Hypertension. PLAN: 1. Continue amiodarone. 2. Low-dose metoprolol. 3. Await further input from Cardiology. 4. Continue dialysis as needed. 5. Monitor and adjust blood sugars and insulin. MD LEVAR Guzman/MODL /[id number]
--- NOTE | 2020-07-25 18:00 | NUR ---
Patient arrived to unit at 1500. Dr. Alejandra called to inform of consult, Dr. Cardenas informed RN he will see patient tonight. Dr. Ramirez notified of consult and asked who patients renal doctor is, patient stated Dr. Wei is normal entertainment dancer. Consult changed to Dr. Wei per Dr. Ramirez. Arya Hand informed patient uses cpap at night, orders given by MD for cpap. Patient does not appear to be in any s/s of distress, resting in bed.
--- NOTE | 2020-07-25 19:30 | NUR ---
REC'D REPORT FROM LYRIC WHITLOCK IN WALKING ROUNDS FOR CONTINUITY OF CARE.
[2020-07-25] MEDS ORDERED: ZOLPIDEM TARTRATE 5 MG TAB PO PRN (21:00)
--- NOTE | 2020-07-25 22:05 | NUR ---
R.T. IN ROOM TO PLACE PT ON C-PAP ADJUSTED TO PT'S COMFORT
--- NOTE | 2020-07-25 22:54 | NUR ---
pt resting in bed with c-pap on and visible chest rise noted.
[2020-07-26] VITALS (17 sets, daily range): BP systolic 122–187; BP diastolic 43–65
--- NOTE | 2020-07-26 02:00 | NUR ---
no distress noted. resting in bed with eyes closed and visible chest rise.
[2020-07-26 04:43] LABS: BASOPHILS % 0.5 % (0.0-1.0); EOSINOPHILS # (AUTO) 0.1 (0.0-0.4); EOSINOPHILS % 1.1 % (0.0-6.0); HEMATOCRIT 27.1 % (34.2-44.1); HEMOGLOBIN 8.7 g/dL (12.0-16.0); LYMPHOCYTES # (AUTO) 1.9 (1.0-3.2); LYMPHOCYTES % 24.3 % (18.0-39.1); MEAN CORPUSCULAR HEMOGLOBIN 31.2 pg (28-32); MEAN CORPUSCULAR HGB CONC 32.1 g/dL (31-35); MEAN CORPUSCULAR VOLUME 97.1 fL (81-99); MONOCYTES # (AUTO) 0.8 (0.2-0.8); MONOCYTES % 10.3 % (4.4-11.3); NEUTROPHILS % 63.4 % (38.7-80.0); PLATELET COUNT 81 x10e3/uL (140-360); RED BLOOD COUNT 2.79 x10e6/uL (3.6-5.1); RED CELL DISTRIBUTION WIDTH 17.8 % (11.7-14.4)
[2020-07-26 04:59] LABS: CALCIUM 7.3 mg/dL (8.4-10.2); CREATININE, SERUM 5.77 mg/dL (0.57-1.11)
--- NOTE | 2020-07-26 05:38 | NUR ---
resting in bed with no s/sx of distress
--- NOTE | 2020-07-26 06:43 | NUR ---
pt requested to be taken off of the c-pap. blood sugar was 96
[2020-07-26 06:45] LABS: ANISOCYTOSIS SLIGHT; EOSINOPHILS % (MANUAL) 2 % (0-7); LYMPHOCYTES % (MANUAL) 16 % (19-48); MONOCYTES % (MANUAL) 5 % (3.4-9.0); NEUTROPHILS % (MANUAL) 77 % (40-74); PLATELET ESTIMATE SLIGHTLY DECREASED; RBC MORPHOLOGY COMMENT NORMAL
[2020-07-26 06:46] LABS: OVALOCYTES FEW
--- NOTE | 2020-07-26 06:51 | NUR ---
reported off to vitaliy dorantes in walking rounds with for continuity of care
[2020-07-26] MEDS: APIXAB 2.5 MG TABLET PO SCH ×2 (07:56→16:03)
[2020-07-26] MEDS: MINOXIDIL 2.5 MG TAB PO SCH ×2 (07:56→16:04)
[2020-07-26] MEDS: ASPIRIN 81 MG CHEW TAB PO SCH (07:56)
[2020-07-26] MEDS: ATORVASTATIN 40 MG TAB PO SCH (07:56)
[2020-07-26] MEDS: METOPROLOL SUCCINATE 25 MG TAB XL PO SCH (07:58)
[2020-07-26] MEDS ORDERED: ATORVASTATIN 20 MG TAB PO SCH (09:00)
--- NOTE | 2020-07-26 09:31 | Progress Note ---
DATE: SUBJECTIVE: The patient is now in normal sinus rhythm. She feels better, is eager to go home. PHYSICAL EXAMINATION: VITAL SIGNS: Blood pressure 155/58, saturation is 97%, pulse is 64. HEENT: No facial swelling or erythema. LYMPHATIC: No submandibular, cervical, or supraclavicular adenopathy. CARDIAC: Regular rate and rhythm with normal S1, S2. LUNGS: Auscultation of lungs reveals rhonchorous breath sounds bilaterally. There is no wheezing. ABDOMEN: Soft, nontender. There is no rebound or guarding. EXTREMITIES: No leg edema or calf tenderness. There is no cyanosis or clubbing. SKIN: No rashes. LABORATORY DATA: White blood cell count is 7.94, hemoglobin is 8.7, platelet count is 81. BUN to creatinine ratio 52:5.77. Other electrolytes are within normal limits. Albumin is 3.1. RADIOGRAPHIC DATA: X-ray of the foot shows a nondisplaced fracture at the base of the 5th metatarsal. Chest x-ray shows left basilar opacities suggestive of atelectasis. IMPRESSION: 1. Atrial fibrillation with rapid ventricular response. 2. End-stage renal disease. 3. Distal metatarsal fracture. 4. Hypertension. 5. Thrombocytopenia. 6. Anemia secondary to chronic blood loss. PLAN: 1. Await Cardiology evaluation. 2. Continue current cardiac regimen. 3. Podiatry evaluation. 4. Continue dialysis as needed. 5. Possible discharge home when cleared by Dr. Chavarria and Cardiology. Santy Hand MD [facility]/TRUPTIL /[id number]
[2020-07-26] MEDS: TRAMADOL HCL 50 MG TAB PO PRN (14:36)
[2020-07-26] MEDS: CALCIUM CARBONATE 500 MG CHEWABLE TABS PO SCH ×2 (14:36→21:09)
[2020-07-26] MEDS ORDERED: INSULIN LISPRO 7 UNIT SQ SCH (15:00)
--- NOTE | 2020-07-26 15:40 | NUR ---
Nutrition Screen Note RD Recommendation for Physician: -Recommend renal/diabetic diet Plan of Care: RD following, monitoring for tolerance and adequacy Nutrition reason for involvement: Nutrition Risk Trigger Primary Diagnose(s): afib with RVR PMH: Hypertension, Diabetes, Atrial fibrillation, End-stage renal disease. Ht:63 in Wt:167 lb BMI: 29.6 kg/m2 IBW:[address] Assessment: (07/26/20) Chart reviewed. Labs and meds reviewed. Pt is a 59 year old male admitted female admitted with afib with RVR. Pt reports eating >50% of her meals. 100% meal intake recorded for breakfast. No weight loss reported and pt mentioned she usually weighs 157-162 lbs. No N/V/D/C or chewing/swallowing issues. Pt requested diet education which was provided. Will continue to monitor. Current Diet: cardiac Malnutrition Evaluation (07/26/20) The patient does not meet criteria for a specified degree of malnutrition at this time. Will re-evaluate at follow-up as appropriate. Diet Education Needs Assessment: Diet education indicated Learner(s): pt Barriers: no barriers identified Cultural/Language Modifications: no cultural/language modifications Readiness: eager/acceptance Method: explanation/discussion/handout Topics: renal diet, carbohydrate counting and reading the food label Understanding/Compliance: pt verbalized understanding Nutrition Care Level: low Signed: Marilyn Garcia, RD, LD
--- NOTE | 2020-07-26 15:53 | Consultation ---
DATE OF CONSULTATION: Initial Nephrology Consultation Report REASON FOR CONSULTATION: End-stage renal disease. HISTORY OF PRESENT ILLNESS: Ms. Theresa Velez is a 59-year-old female. She gets regular dialysis at [facility] dialysis unit. She gets dialysis on Thursday, Thursday, and Thursday. Apparently, the patient was at dialysis yesterday and towards the end of dialysis towards the last few minutes, the patient developed a tachycardia and palpitations, then she was sent to the emergency room for further evaluation, where it was discovered that she was in atrial fibrillation with rapid ventricular response. The patient at the present time has no complaints. No chest pain. She is here in the ICU. PAST MEDICAL HISTORY: 1. Diabetes. 2. Hypertension. 3. End-stage renal disease. 4. Coronary artery disease. PAST SURGICAL HISTORY: She has undergone coronary artery bypass graft surgery in the past and cholecystectomy in the past. MEDICATIONS: At this time in the hospital, she is on metoprolol 25 mg b.i.d., Lipitor 40 mg a day, minoxidil 2.5 mg b.i.d., aspirin, and Eliquis. She is on p.r.n. metoprolol. REVIEW OF SYSTEMS: As per HPI. PHYSICAL EXAMINATION: VITAL SIGNS: Currently, blood pressure is 166/51 and pulse 63. GENERAL: The patient is in no acute distress. HEENT: No increased JVD. CARDIOVASCULAR: Regular rate and rhythm at this time. LUNGS: Clear to auscultation. ABDOMEN: Positive bowel sounds. Nontender and nondistended. EXTREMITIES: No edema, cyanosis, or clubbing. The patient has an AV fistula in the left arm towards the left forearm area. LABORATORY DATA: Hemoglobin and hematocrit are 8.7 and 27.1 respectively. Sodium 138, potassium 4, chloride 100, bicarbonate 26, BUN and creatinine of 52 and 5.7 respectively, calcium 7.3. Albumin 3.1. IMPRESSION/PLAN: 1. Chronic kidney disease, stage 5. 2. Atrial fibrillation with rapid ventricular response. 3. Coronary artery disease. 4. Hypocalcemia. PLAN: The patient is due for dialysis tomorrow. If she is still here, Cardiology evaluation is to be done. Right now, she seems to be rate controlled. I will put her on some calcium carbonate and some Tums for the hypocalcemia and we will check labs again tomorrow, and she will be dialyzed tomorrow. Thank you for allowing me to participate in the care of this patient with you. Ather MD ALMAS Glynn/RANDELL /[id number]
[2020-07-26] MEDS: CARVEDILOL 12.5 MG TAB PO SCH (16:03)
[2020-07-26] MEDS: SEVELAMER CARBONATE 800 MG TAB PO SCH (16:04)
[2020-07-26] MEDS: NIFEDIPINE CR 30 MG TAB PO SCH (16:04)
[2020-07-26] MEDS: INSULIN LISPRO 100 UNIT/1 ML 3ML VIAL SQ SCH (16:45)
--- NOTE | 2020-07-26 17:29 | History and Physical ---
HISTORY OF PRESENT ILLNESS: The patient is a 59-year-old female with past medical history positive for end-stage renal disease on dialysis, diabetes, history of coronary artery disease status post stent. She came with atrial fibrillation with rapid ventricular response on dialysis. She was admitted to the hospital. Heart rate has been under control so far, we are going to transfer her to the medical floor. Troponin has been negative. She is in sinus rhythm. Occasionally she goes into atrial fibrillation. REVIEW OF SYSTEMS: CARDIOVASCULAR: She did have palpitations and chest pain yesterday. RESPIRATORY: No shortness of breath. No cough. GASTROINTESTINAL: No nausea. No vomiting. She has diarrhea occasionally on dialysis. GENITOURINARY: No frequency. No dysuria. ALLERGIES: ALLERGIC TO MORPHINE. PAST MEDICAL HISTORY: Positive for end-stage renal disease, on dialysis, uncontrolled diabetes mellitus type 2 with diabetic nephropathy; coronary artery disease, status post stent. Hypertension. SOCIAL HISTORY: She does not smoke, does not drink. PHYSICAL EXAMINATION: VITAL SIGNS: Blood pressure 166/51, temperature 98.6, heart rate 63 per minute, respiratory rate 17 per minute, O2 saturation 98%. HEART: Showed regular rhythm. Normal S1, S2 sound. LUNGS: Clear bilaterally. ABDOMEN: Soft. EXTREMITIES: Show no edema. LABORATORY DATA: On the CBC; white blood count 7.94, hemoglobin 8.7, hematocrit 27.1, platelet count 81,000. On the BMP; sodium 138, potassium 4.0, chloride 100, CO2 of 26, BUN 52, creatinine 5.77, glucose 99 calcium 7.3, total bilirubin 0.5, AST 18, ALT 21, alkaline phosphatase of 134, albumin 3.1, globin 3.7, troponin 0.012. On the chest x-ray we have left basilar opacity, most likely to segment atelectasis and superimposed aspiration pneumonia. We had an x-ray on the right foot, which showed acute over the fifth metatarsal fracture. FINAL IMPRESSION: 1. Atrial fibrillation with rapid ventricular response. 2. End-stage renal disease, on dialysis. 3. Uncontrolled diabetes mellitus type 2 with diabetic nephropathy. 4. Anemia of chronic disease. 5. Diabetic nephropathy. 6. Hypertensive nephropathy. 7. Coronary artery disease, status post stent. PLAN OF TREATMENT: The patient will continue with telemetry. She will be transferred to the medical floor. Continue Eliquis 2.5 mg twice a day, aspirin 81 mg daily, atorvastatin 40 mg daily, calcium carbonate 1500 mg three times a day, carvedilol 25 mg twice a day. Continue Humalog 7 units before each meal, metoprolol 5 mg IV q.4h p.r.n. for tachycardia more than 110 per minute. She is taking minoxidil 2.5 mg twice a day, nifedipine 90 mg twice a day. Continue sevelamer 800 mg three times a day and Ambien 5 mg at night p.r.n. for sleep. Also we are going to put her on tramadol we are going to start tramadol 50 mg p.o. every 4-6 hours as needed for severe pain. Diet will be 1800 calorie ADA diabetic diet. Cardiology consult with Dr. Alejandra has been requested. Also, Nephrology consult and also Podiatry consult with Dr. Whitaker because of the fracture of the metatarsal on the right foot. MD ESTRELLITA Perkins/RANDELL /[id number]
--- NOTE | 2020-07-26 17:34 | NUR ---
Dr. Whitaker informed of new consult, orders given for unna boot at bedside for him to apply. Unna boot placed at bedside. Dr. Chavarria gave orders for medical surgical floor with telemetry, Dr. Chavarria informed of patient's R foot pain, orders given for tramadol prn, patient medicated for pain and felt pain relief within 30 mins later. Will continue to monitor patient.
--- NOTE | 2020-07-26 18:20 | NUR ---
Patient transferred to room 107, no s/s of distress noted at this time. Report given to Bobbi GUNTER prior to transfer.
--- NOTE | 2020-07-26 19:49 | Consultation ---
DATE OF CONSULTATION: 07/26/2020 REASON FOR CONSULTATION: Pain to the right foot with the patient being an insulin-dependent diabetes. HISTORY OF PRESENT ILLNESS: This is a pleasant 59-year-old white female who relates that she has pain upon weightbearing to the right foot, fell from her son's truck approximately a week ago and is having moderate to severe pain upon weightbearing to the plantar and forefoot aspect both lower extremities, right worse than left. She was admitted secondary to atrial fibrillation with rapid ventricular response on dialysis. Currently, feeling much better. Relates no tachycardia, shortness of breath. She is having pain to the forefoot aspect of the right foot. PAST MEDICAL HISTORY: Remarkable for insulin-dependent diabetes, coronary artery disease, end-stage renal disease with insulin-dependent diabetes. PAST SURGICAL HISTORY: Remarkable for open-heart surgery in May of 2019, cholecystectomy, tonsillectomy, and mass removed from the right kidney. ALLERGIES: TO MORPHINE. CURRENT MEDICATIONS: Note listed in the chart. SOCIAL HISTORY: No smoking, drinking, or recreational drug use. Lives with both her kids. . Did smoke when she was younger. FAMILY HISTORY: Noncontributory. REVIEW OF SYSTEMS: CARDIAC: Denies any palpitations or arrhythmias. RESPIRATORY: Denies any shortness of breath, or productive cough. GASTROINTESTINAL: Denies any diarrhea or constipation. PHYSICAL EXAMINATION: VITAL SIGNS: Afebrile. Pulse rate 65, respirations 16, blood pressure 141/53, O2 saturation 97%. Podiatric physical examination reveals the following: VASCULATURE: Pedal pulses of both the DP and PT are palpable. NEUROLOGICAL: Shows some loss of protective sensation when utilizing [place] 5.07 monofilament wire. MUSCULOSKELETAL: Muscle mass is asymmetrical, some swelling and tenderness noted to the lateral aspect of the right foot when compared to the left with pain along the lateral aspect of the right 5th metatarsal and 4th metatarsal bases and head area. DERMATOLOGICAL: Shows no open lesions. X-ray report was visualized revealing a nondisplaced 5th metatarsal base fracture. LABORATORY DATA: Noted; has a white blood cell count of 7.94, hemoglobin 8.7 with platelet count of 81, blood glucose of 181. ASSESSMENT: Fracture metatarsal with edema. PLAN: The patient was ordered to have a surgical shoe at bedside. Once the swelling goes down a little bit more, then it will be applied. We will continue to follow and treat conservatively. We will observe x-ray films tomorrow. NIKKI Michaels/RANDELL /[id number]
[2020-07-27] VITALS (8 sets, daily range): BP systolic 129–161; BP diastolic 55–67
--- NOTE | 2020-07-27 02:46 | Consultation ---
DATE OF CONSULTATION: Cardiology Consultation REASON FOR CONSULTATION: Atrial fibrillation. HISTORY OF PRESENT ILLNESS: This is a 59-year-old woman with a history of end-stage renal disease, on hemodialysis, hypertension, coronary artery disease, status post coronary artery bypass graft surgery, paroxysmal atrial fibrillation, and diabetes mellitus who presented to the emergency department after a dialysis session due to elevated heart rates, palpitations, shortness of breath, and chest pain. The patient was found to have atrial fibrillation with rapid ventricular response and was given Cardizem. She is currently feeling better. Denies any ongoing chest pain, shortness of breath, or palpitations. REVIEW OF SYSTEMS: 12-point review of system was conducted, is negative except as stated above in the HPI. PAST MEDICAL HISTORY: As stated above in the HPI. PAST SURGICAL HISTORY: As stated above in the HPI. PAST FAMILY HISTORY: Noncontributory to current illness. SOCIAL HISTORY: No illicit drug, alcohol, or tobacco use. ALLERGIES: MORPHINE. MEDICATIONS: See medication reconciliation form. PHYSICAL EXAMINATION: VITAL SIGNS: Temperature is 98.2, heart rate 65, respirations 16, blood pressure is 141/53, oxygen saturation 97% on room air. GENERAL: Well appearing, well built, in no apparent distress. Alert and oriented x3. HEAD: Normocephalic and atraumatic. EYES: The extraocular muscles are intact. Conjunctivae are clear. NECK: No JVD. No bruits. CARDIOVASCULAR: Regular rate and rhythm. LUNGS: Clear to auscultation. ABDOMEN: Soft, nontender, nondistended. EXTREMITIES: No clubbing, cyanosis, or edema. VASCULAR: 2+ pulses. SKIN: Warm, dry, intact. NEUROLOGIC: No focal deficits noted. Cranial nerves grossly intact. PSYCHIATRIC: Normal mood and affect. LABORATORY DATA: Reviewed, notable for hemoglobin of 8.7. Creatinine of 5.77. Troponin negative. BNP is 2419. Chest x-ray shows left basilar opacity. IMPRESSION: 1. Paroxysmal atrial fibrillation. 2. Hypertension. 3. Coronary artery disease, status post coronary artery bypass graft surgery. 4. End-stage renal disease. 5. Hyperlipidemia. 6. Diabetes mellitus. RECOMMENDATIONS: The patient is currently asymptomatic from a cardiovascular standpoint. Her vital signs are stable and her heart rate has improved. The patient states that she has had recurrent episodes of these paroxysms of atrial fibrillation occasionally with dialysis. She formally was on amiodarone. We will start back the amiodarone at 200 daily. Continue all other current cardiovascular medications consisting of nifedipine, minoxidil, carvedilol, apixaban, atorvastatin, and aspirin. The patient is stable from a cardiovascular standpoint. If she tolerates dialysis well without any complications, she may be discharged from a cardiovascular standpoint with outpatient followup. DO DEMARCO Huntley/RANDELL /[id number]
[2020-07-27 05:22] LABS: ALBUMIN 2.6 g/dL (3.5-5.0); CALCIUM 7.2 mg/dL (8.4-10.2); CREATININE, SERUM 7.03 mg/dL (0.57-1.11)
[2020-07-27] MEDS: SEVELAMER CARBONATE 800 MG TAB PO SCH ×3 (08:40→17:44)
[2020-07-27] MEDS: CARVEDILOL 12.5 MG TAB PO SCH ×2 (08:41→17:00)
[2020-07-27] MEDS: CALCIUM CARBONATE 500 MG CHEWABLE TABS PO SCH ×3 (08:41→22:06)
[2020-07-27] MEDS: AMIODARONE HCL 200 MG TAB PO SCH (08:41)
[2020-07-27] MEDS: APIXAB 2.5 MG TABLET PO SCH ×2 (08:41→17:44)
[2020-07-27] MEDS: ASPIRIN 81 MG CHEW TAB PO SCH (08:41)
[2020-07-27] MEDS: MINOXIDIL 2.5 MG TAB PO SCH ×2 (08:41→17:00)
[2020-07-27] MEDS: ATORVASTATIN 40 MG TAB PO SCH (08:41)
[2020-07-27] MEDS: NIFEDIPINE CR 30 MG TAB PO SCH ×2 (08:42→17:00)
[2020-07-27] MEDS: INSULIN LISPRO 100 UNIT/1 ML 3ML VIAL SQ SCH ×3 (08:46→17:45)
--- NOTE | 2020-07-27 10:54 | Progress Note ---
DATE: 07/27/2020 SUBJECTIVE: The patient is seen at bedside, having pain and swelling to the right lower extremity. Denies any history of fever, chills, nausea, or vomiting. Decreased palpitations to her heart. OBJECTIVE: VITAL SIGNS: Afebrile, pulse rate 62, respirations 20, blood pressure 136/58, and O2 saturation 99%. EXTREMITIES: Swelling and pain overlying the 4th and 5th metatarsal bases and 4th and 5th metatarsophalangeal joint areas. X-rays were evaluated, has a 5th metatarsal base fracture with minimal displacement with no evidence type of fractures to the metatarsal head. ASSESSMENT: Capsulitis, edema, foot fracture, 5th metatarsal base. PLAN: We will swell before she is put in an Unna boot. Instructed that she is going to walk and do therapy. She should strictly wear the surgical shoe, which is at bedside. Keep her foot elevated. Instructed on range of motion exercises and will be seen this weekend for application of soft cast. NIKKI Michaels/RANDELL /[id number]
--- NOTE | 2020-07-27 11:11 | NUR ---
EDUCATED ABOUT IMM, SIGNED, FILED IN CHART, WITH COPY LEFT WITH FAMILY AT BEDSIDE.
--- NOTE | 2020-07-27 11:20 | NUR ---
DAUGHTER CONTACT IS ERNESTO [phone]
--- NOTE | 2020-07-27 11:43 | Discharge Summary ---
HOSPITAL COURSE: The patient is a 59-year-old female, past medical history positive for coronary artery disease status post CABG, end-stage renal disease on dialysis, diabetes mellitus, and atrial fibrillation, came here with tachycardia, on dialysis. She was found to have atrial fibrillation with rapid ventricular response. Heart rate is under much better control now. The patient is going home today if okay with cigar packer and shader, dining room captain, and tongue carrier. She was found to have a fracture on the right 5th metatarsal, which is nondisplaced. Dr. Whitaker has been consulted from the Podiatry point of view. He is going to put a boot once the swelling goes down. He is planning to do it tomorrow. Cardiology, Dr. Pietro Cardenas has seen the patient. He recommended the patient to be going home from his point of view. PHYSICAL EXAMINATION: HEART: Showed regular rhythm. Normal S1 and S2 sound. LUNGS: Clear bilaterally. ABDOMEN: Soft. EXTREMITIES: Showed edema on the right foot. FINAL IMPRESSION: 1. Episode of atrial fibrillation with rapid ventricular response. 2. End-stage renal disease, on dialysis. 3. Uncontrolled diabetes mellitus type 2 with diabetic nephropathy. 4. Chronic disease anemia secondary to end-stage renal disease. 5. Hypertensive nephropathy. 6. Coronary artery disease, status post coronary artery bypass grafting. PLAN OF TREATMENT: We will continue exactly same medication, already dictated in my progress note. Tentative discharge today or tomorrow pending Dr. Whitaker to put the boot on the right foot. The patient will follow up with her cigar packer and shader and primary care physician, and dining room captain. She will have dialysis today. Continue diabetic renal diet. MD ESTRELLIAT Perkins/MODL /[id number]
--- NOTE | 2020-07-27 11:49 | Progress Note ---
DATE: Internal Medicine Progress Note SUBJECTIVE: The patient is doing well. Cardiology has been released to go home. Blood pressure is still very high. The Podiatry is going to put a cast on the right foot. PHYSICAL EXAMINATION: VITAL SIGNS: The blood pressure 161/65, temperature 98.8, heart rate 63 per minute, respiratory rate 18 per minute, and oxygen saturation 98%. HEART: Showed regular rhythm. Normal S1 and S2 sound. LUNGS: Clear bilaterally. ABDOMEN: Soft. EXTREMITIES: Showed edema on the right foot. LABORATORY DATA: On the blood work, we have a CBC; white blood count 7.94, hemoglobin 8.7, hematocrit 27.1, and platelet count 81,000. On the BMP; sodium 136, potassium 4.0, chloride 98, CO2 24, BUN 66, creatinine 7.03, glucose 118, and calcium 7.2. Albumin 2.6. Coronavirus test is negative. Toe x-ray showed nondisplaced fracture on the base of the 5th metatarsal fracture. Chest x-ray was done also, which showed left basilar opacity, more likely subsegment atelectasis or superimposed aspiration pneumonia. FINAL IMPRESSION: 1. Atrial fibrillation with tachycardia, which is resolved, now the rhythm is in the 60s. 2. End-stage renal disease, on dialysis. 3. Uncontrolled diabetes mellitus type 2 with end-stage renal disease. 4. Anemia of chronic disease. 5. Hypertensive nephropathy. 6. Coronary artery disease, status post coronary artery bypass grafting. PLAN OF TREATMENT: The patient might be able to go home today along with his blood pressure is better. She will continue Cordarone 200 mg daily, Eliquis 2.5 mg twice a day, aspirin 81 mg daily, Lipitor 40 mg daily, calcium carbonate 1500 mg 3 times a day, and Coreg 25 mg twice a day. Continue Humalog 7 units with meals. Continue metoprolol is going to be 5 mg IV q.5 minutes as needed for tachycardia and 110 per minute, minoxidil 2.5 mg twice a day, Procardia 90 mg twice a day, sevelamer 800 mg 3 times a day, tramadol 50 mg q.4 hours as needed for pain, and Ambien 5 mg at night p.r.n. for sleep. Tentative discharge today or tomorrow if okay with advisor consultant and if level of blood pressure is normal. MD ESTRELLITA Perkins/RANDELL /[id number]
--- NOTE | 2020-07-27 15:45 | NUR ---
dialysis called to inform patient needs hemodialysis today. spoke to Liz.awaiting return call.
--- NOTE | 2020-07-27 15:59 | Progress Note ---
DATE: 07/27/2020 Renal Progress Note SUBJECTIVE: Events over the past 24 hours have been noted. The patient has no chest pain. No real shortness of breath. PHYSICAL EXAMINATION: VITAL SIGNS: Blood pressure 139/66, pulse 83, and respiration 20. GENERAL: The patient is in no acute distress. HEENT: No increased JVD. CARDIOVASCULAR: Regular rate and rhythm. LUNGS: Decreased breath sounds at bases bilaterally. ABDOMEN: Positive bowel sounds. EXTREMITIES: No edema, cyanosis, or clubbing. The patient has AV fistula in the left arm, left forearm area. LABORATORY RESULTS: Hemoglobin and hematocrit are 8.7 and 27.1 respectively. Sodium 136, potassium 5, chloride 90, bicarbonate 24, BUN and creatinine 66 and 7 respectively, and calcium 7.2. Albumin 2.6. IMPRESSION/PLAN: 1. Chronic kidney disease, stage 5. 2. Atrial fibrillation. 3. Hypertension. 4. Relative hypocalcemia. PLAN: The patient is going to get dialysis today. We will dialyze via the AV fistula. We will use a 2 potassium bath, 3.5 calcium bath. We will ultrafilter 2 to 3 L as tolerated, 3.5 hours, blood flow rate of 350 to 400, dialysate flow rate of 500 to 700. The patient will continue the Renvela as a phosphorus binder. Also, the patient is on some Tums 3 times a day. Ather MD ALMAS Glynn/RANDELL /[id number]
[2020-07-27] MEDS ORDERED: SODIUM CHLORIDE 0.9% 1000ML 2,000 ML ONE (17:51)
--- NOTE | 2020-07-27 20:46 | Progress Note ---
DATE: Cardiology Progress Note SUBJECTIVE: The patient is feeling better. Denies any chest pain, shortness of breath or palpitations. OBJECTIVE: VITAL SIGNS: Temperature is 99.2, heart rate 63, respirations are 20, blood pressure is 149/66, oxygen saturation 100% on room air. GENERAL: Well appearing, no apparent distress. CARDIOVASCULAR: Regular rate and rhythm. LUNGS: Clear to auscultation. ABDOMEN: Soft, nontender, nondistended. EXTREMITIES : No clubbing, cyanosis, or edema. CARDIOVASCULAR MEDICATIONS: Reviewed. LABORATORY DATA: Reviewed. Hemoglobin is 8.7, creatinine is 7.03, potassium 5. Telemetry monitoring personally reviewed and shows normal sinus rhythm. IMPRESSION: 1. Paroxysmal atrial fibrillation, currently normal sinus rhythm. 2. Hypertension. 3. Coronary artery disease status post coronary artery bypass graft surgery. 4. End-stage renal disease, on hemodialysis. 5. Diabetes mellitus. RECOMMENDATIONS: The patient continues to remain asymptomatic from a cardiovascular standpoint. Her blood pressure is acceptable and her heart rate has improved. She is maintaining normal sinus rhythm. I restarted her on amiodarone 200 daily for recurrent episodes of paroxysmal atrial fibrillation. Continue all other cardiovascular medications and antihypertensives. The patient may be discharged from a cardiovascular standpoint with outpatient followup. DO DEMARCO Huntley/TRUPTIL /[id number]
--- NOTE | 2020-07-27 22:00 | NUR ---
HEMODIALYSIS COMPLETED AT THIS TIME. 3L REMOVED. PATIENT TOLERATED WELL.
[2020-07-27] MEDS: TRAMADOL HCL 50 MG TAB PO PRN (23:35)
[2020-07-28 00:01] VITALS: BP 175/64
[2020-07-28 04:08] VITALS: BP 179/65
[2020-07-28 06:15] VITALS: BP 150/51
[2020-07-28] MEDS: INSULIN LISPRO 100 UNIT/1 ML 3ML VIAL SQ SCH ×2 (08:00→13:09)
[2020-07-28 08:04] VITALS: BP 171/56
[2020-07-28 08:23] VITALS: BP 171/56
[2020-07-28] MEDS: AMIODARONE HCL 200 MG TAB PO SCH (08:41)
[2020-07-28] MEDS: CARVEDILOL 12.5 MG TAB PO SCH (08:41)
[2020-07-28] MEDS: ASPIRIN 81 MG CHEW TAB PO SCH (08:41)
[2020-07-28] MEDS: APIXAB 2.5 MG TABLET PO SCH (08:41)
[2020-07-28] MEDS: SEVELAMER CARBONATE 800 MG TAB PO SCH ×2 (08:41→11:58)
[2020-07-28] MEDS: MINOXIDIL 2.5 MG TAB PO SCH (08:42)
[2020-07-28] MEDS: NIFEDIPINE CR 30 MG TAB PO SCH (08:42)
[2020-07-28] MEDS: CALCIUM CARBONATE 500 MG CHEWABLE TABS PO SCH (08:42)
[2020-07-28] MEDS: ATORVASTATIN 40 MG TAB PO SCH (08:42)
--- NOTE | 2020-07-28 10:45 | Diagnostic Imaging Report ---
EXAMINATION: CHEST SINGLE (PORTABLE) INDICATION: Chest pain COMPARISON: Chest radiograph 07/25/2020. FINDINGS: LINES/TUBES: EKG leads overlie the chest. LUNGS/PLEURA:There is persistent left basilar opacity silhouetting the left charles diaphragm. There are persistent faint bilateral opacities likely due to pulmonary edema. MEDIASTINUM:The cardiomediastinal silhouette is enlarged.. Atherosclerotic calcifications of the thoracic aorta. BONES/SOFT TISSUES:No acute osseous injury. ABDOMEN:No free air under the diaphragm. IMPRESSION: Persistent cardiomegaly and pulmonary edema. Unchanged left basilar opacity could be atelectasis/effusion or pneumonia. Signed by: Momo Abad MD on 07/28/2020 10:41 AM
[2020-07-28 10:51] LABS: BASOPHILS % 0.2 % (0.0-1.0); EOSINOPHILS # (AUTO) 0.1 (0.0-0.4); EOSINOPHILS % 0.8 % (0.0-6.0); HEMATOCRIT 28.1 % (34.2-44.1); HEMOGLOBIN 9.3 g/dL (12.0-16.0); LYMPHOCYTES # (AUTO) 1.5 (1.0-3.2); LYMPHOCYTES % 17.4 % (18.0-39.1); MEAN CORPUSCULAR HGB CONC 33.1 g/dL (31-35); MEAN CORPUSCULAR VOLUME 96.6 fL (81-99); MONOCYTES # (AUTO) 0.7 (0.2-0.8); NEUTROPHILS # (AUTO) 6.1 (2.1-6.9); NEUTROPHILS % 73.2 % (38.7-80.0); PLATELET COUNT 102 x10e3/uL (140-360); RED BLOOD COUNT 2.91 x10e6/uL (3.6-5.1); RED CELL DISTRIBUTION WIDTH 16.8 % (11.7-14.4)
--- NOTE | 2020-07-28 10:58 | Consultation ---
DATE OF CONSULTATION: 07/28/2020 SUBJECTIVE: The patient was seen at bedside, still having some discomfort to the right lower extremity, but less swelling. Denies any history of fever, chills, nausea, or vomiting. OBJECTIVE: VITAL SIGNS: Afebrile, pulse rate 66, respirations 20, blood pressure 171/56, and O2 saturation 98%. EXTREMITIES: Positive pain to the forefoot aspect of the right foot in the 4th and 5th metatarsal bases and 4th and 5th MPJ areas with pain to the 4th and 5th digits. No open lesions noted. Swelling when compared to contralateral side with pedal pulses palpable. ASSESSMENT: Capsulitis, metatarsalgia with fractured 5th met with possible stress fracture to the metatarsal heads. PLAN: Unna boot was reapplied to the right lower extremity. The patient instructed to wear the surgical shoe at all times. Okay to be discharged is to follow up in the office. Instructed to limit her weightbearing. NIKKI Michaels/RANDELL /[id number]
[2020-07-28 11:07] LABS: ANION GAP 17.1 mmol/L (8-16); CALCIUM 7.5 mg/dL (8.4-10.2); CREATININE, SERUM 5.97 mg/dL (0.57-1.11); POTASSIUM 4.1 mmol/L (3.5-5.1)
[2020-07-28 12:29] VITALS: BP 151/56
--- NOTE | 2020-07-28 12:38 | Discharge Summary ---
ADMIT DIAGNOSES: 1. Paroxysmal atrial fibrillation. 2. Coronary artery disease (history of coronary artery bypass grafting). 3. Hypertensive heart disease. 4. End-stage renal disease. 5. Type 2 diabetes mellitus. DISCHARGE DIAGNOSES: 1. Paroxysmal atrial fibrillation. 2. Acute on chronic systolic congestive heart failure, resolving. 3. End-stage renal disease. 4. Coronary artery disease (history of coronary artery bypass grafting). 5. Type 2 diabetes mellitus. 6. Right 5th metatarsal fracture. 7. Anemia secondary to chronic kidney disease. HOSPITAL COURSE: This is a 59-year-old woman, who was initially admitted to [facility] with diagnosis of atrial fibrillation, rapid ventricular rate. The patient was given intravenous Cardizem by emergency medical services prior to arrival to the hospital. During hospitalization, the patient's heart rate was controlled with carvedilol 25 mg twice a day as well as intravenous metoprolol tartrate as needed. The patient was seen by utility helicopter repairer during this hospitalization, namely Dr. Pietro Cardenas. The patient also was continued on Eliquis 2.5 mg twice a day for anticoagulation in regard to atrial fibrillation. During hospitalization, the patient was seen by a radio survey worker, namely Dr. Gabriel Whitaker because of a fracture right 5th metatarsal bone. During hospitalization, the patient was also seen by her addictions counselor, namely Dr. Ruiz because of her end-stage renal disease. The patient did receive hemodialysis during this hospitalization. CONDITION ON DISCHARGE: Stable. DISCHARGE MEDICATIONS: 1. Amiodarone 200 mg once daily. 2. Nifedipine 90 mg b.i.d. 3. Calcium carbonate 1500 mg t.i.d. 4. Atorvastatin 20 mg qhs. 5. Minoxidil 2.5 mg b.i.d. 6. Sevelamer 800 mg t.i.d. with meals. 7. Carvedilol 25 mg b.i.d. 8. Aspirin 81 mg daily. 9. Apixaban 2.5 mg b.i.d. 10. Tramadol 50 mg every 6 hours p.r.n. pain, 30 prescribed, no refills. FOLLOWUP INSTRUCTIONS: The patient is instructed to follow up with her utility helicopter repairer, namely Dr. Pietro Cardenas within a week and with her primary care physician within 2 weeks. The patient instructed to follow up with her radio survey worker, Dr. Gabriel Whitaker also within a week. MD DARREN Ruiz/RANDELL /[id number] cc: NIKKI Michaels DO MTDD
--- NOTE | 2020-07-28 13:52 | NUR ---
Pt discharged home at this time. Pt verbalized understanding of all discharge and follow up appointments. Dressing to left arm fistula is dry and intact. Pt was sent home with new prescriptions and verbalized understanding of new medications. Pt advised to leave dressing to right foot in place and keep dry until seen by Dr. Whitaker. Pt is able to walk and bear weight to right foot only if she has surgical boot on.
[2020-07-29] MEDS ORDERED: AMIODARONE HCL200 MG PO (20:45)
[2020-07-29] MEDS ORDERED: SEVELAMER CARB800 MG PO (20:45)
== END 2020-07-28 13:53 | disposition home or self-care (01) | DRG 308 ==
LOC: ER 10:03 → ERHOLD 14:06 → ICU 15:04 → MED/SURG 07-26 18:22
PROVIDERS: ADMIT Internal Medicine; ATTEND Internal Medicine
DX: I48.0 Paroxysmal atrial fibrillation (principal); N18.6 End stage renal disease; I50.23 Acute on chronic systolic (congestive) heart failure; I13.2 Hypertensive heart and chronic kidney disease with heart failure and with stage 5 chronic kidney disease, or end stage renal disease; D69.6 Thrombocytopenia, unspecified; M77.41 Metatarsalgia, right foot; E11.22 Type 2 diabetes mellitus with diabetic chronic kidney disease; D50.0 Iron deficiency anemia secondary to blood loss (chronic); I25.10 Atherosclerotic heart disease of native coronary artery without angina pectoris; D63.1 Anemia in chronic kidney disease; E11.21 Type 2 diabetes mellitus with diabetic nephropathy; S92.354A Nondisplaced fracture of fifth metatarsal bone, right foot, initial encounter for closed fracture; E78.5 Hyperlipidemia, unspecified; Z95.1 Presence of aortocoronary bypass graft; Z88.5 Allergy status to narcotic agent; Z20.828 Contact with and (suspected) exposure to other viral communicable diseases; Z79.4 Long term (current) use of insulin
CPT/HCPCS: 36415; 71045; 80048; 80053; 82040; 82948; 83880; 84484; 85025; 90962; 93005; 94660; 99285; J7030; J7040; U0002

== ENCOUNTER 2020-07-29 17:54 | Inpatient (IN) | payer MEDICARE ==
[~2020-07-29] VITALS: Ht 160 cm; Wt 75.7 kg
[~2020-07-29 17:54] MED LIST changes: +ELIQUIS2.5 MG PO; +MINOXIDIL2.5 MG PO; +PROCARDIA XL30 MG
[2020-07-29] MEDS ORDERED: SODIUM CHLORIDE 0.9% 500ML 500 ML IV ONE (18:30)
[2020-07-29] MEDS ORDERED: METOPROLOL TARTRATE INJ 1 MG/ML VIAL IV ONE (18:30)
[2020-07-29 18:59] LABS: BASOPHILS % 0.6 % (0.0-1.0); EOSINOPHILS # (AUTO) 0.1 (0.0-0.4); EOSINOPHILS % 1.9 % (0.0-6.0); HEMATOCRIT 30.7 % (34.2-44.1); LYMPHOCYTES # (AUTO) 1.5 (1.0-3.2); LYMPHOCYTES % 21.7 % (18.0-39.1); MEAN CORPUSCULAR HEMOGLOBIN 31.3 pg (28-32); MEAN CORPUSCULAR HGB CONC 32.6 g/dL (31-35); MEAN CORPUSCULAR VOLUME 95.9 fL (81-99); MONOCYTES # (AUTO) 0.5 (0.2-0.8); MONOCYTES % 6.8 % (4.4-11.3); NEUTROPHILS # (AUTO) 4.8 (2.1-6.9); NEUTROPHILS % 68.7 % (38.7-80.0); PLATELET COUNT 108 x10e3/uL (140-360); RED CELL DISTRIBUTION WIDTH 16.6 % (11.7-14.4)
[2020-07-29 19:05] LABS: INR 1.17; PROTHROMBIN TIME 15.5 seconds (11.9-14.5)
[2020-07-29 19:06] LABS: PARTIAL THROMBOPLASTIN TIME 34.7 seconds (23.8-35.5)
[2020-07-29] MEDS ORDERED: DILTIAZEM HCL 5 MG/ML 5 ML VIAL IV STA ×2 (19:07→20:23)
[2020-07-29 19:14] LABS: ALBUMIN/GLOBULIN RATIO 0.8 (0.8-2.0); ANION GAP 19.5 mmol/L (8-16); CALCIUM 7.4 mg/dL (8.4-10.2); CREATININE, SERUM 8.35 mg/dL (0.57-1.11); POTASSIUM 4.5 mmol/L (3.5-5.1)
[2020-07-29] MEDS ORDERED: DILTIAZEM HCL VIAL 5 ML ONE (19:18)
[2020-07-29 19:21] LABS: CREATINE KINASE MB 4.5 ng/mL (0-5.0)
[2020-07-29] MEDS ORDERED: DILTIAZEM HCL 5 MG/ML 5 ML VIAL IV ONE (20:30)
[2020-07-29] MEDS ORDERED: AMIODARONE HCL200 MG PO (20:45)
[2020-07-29] MEDS ORDERED: SEVELAMER CARB800 MG PO (20:45)
[2020-07-29] MEDS ORDERED: DEXTROSE 50% SYRINGE 50 ML IV PRN (21:15)
[2020-07-29 21:19] VITALS: BP 128/85
[2020-07-29] MEDS ORDERED: DIGOXIN INJ 0.25 MG/ML 2 ML AMP IV ONE (22:00)
[2020-07-29] MEDS ORDERED: CARVEDILOL 12.5 MG TAB PO SCH (22:00)
[2020-07-29] MEDS: NIFEDIPINE CR 30 MG TAB PO SCH (22:26)
[2020-07-29] MEDS: METOPROLOL TARTRATE 25 MG TAB PO SCH (22:27)
[2020-07-29 22:30] VITALS: BP 128/85
[2020-07-30] VITALS (8 sets, daily range): BP systolic 130–161; BP diastolic 58–82
[2020-07-30 02:59] LABS: BASOPHILS % 0.5 % (0.0-1.0); EOSINOPHILS # (AUTO) 0.2 (0.0-0.4); EOSINOPHILS % 2.1 % (0.0-6.0); HEMATOCRIT 28.8 % (34.2-44.1); HEMOGLOBIN 9.5 g/dL (12.0-16.0); LYMPHOCYTES # (AUTO) 1.9 (1.0-3.2); LYMPHOCYTES % 22.4 % (18.0-39.1); MEAN CORPUSCULAR HEMOGLOBIN 31.6 pg (28-32); MEAN CORPUSCULAR VOLUME 95.7 fL (81-99); MONOCYTES # (AUTO) 0.6 (0.2-0.8); MONOCYTES % 6.9 % (4.4-11.3); NEUTROPHILS # (AUTO) 5.7 (2.1-6.9); NEUTROPHILS % 67.7 % (38.7-80.0); PLATELET COUNT 115 x10e3/uL (140-360); RED BLOOD COUNT 3.01 x10e6/uL (3.6-5.1); RED CELL DISTRIBUTION WIDTH 16.7 % (11.7-14.4)
[2020-07-30 03:20] LABS: CREATINE KINASE MB 2.5 ng/mL (0-5.0)
[2020-07-30 03:23] LABS: PHOSPHORUS 4.4 MG/DL (2.3-4.7)
[2020-07-30 03:37] LABS: ALBUMIN 2.7 g/dL (3.5-5.0); ALBUMIN/GLOBULIN RATIO 0.7 (0.8-2.0); ANION GAP 20.1 mmol/L (8-16); CALCIUM 7.2 mg/dL (8.4-10.2); CREATININE, SERUM 8.23 mg/dL (0.57-1.11); MAGNESIUM 1.9 MG/DL (1.3-2.1); POTASSIUM 5.1 mmol/L (3.5-5.1)
[2020-07-30] MEDS: METOPROLOL TARTRATE 25 MG TAB PO SCH ×2 (06:18→12:00)
[2020-07-30] MEDS: INSULIN REGULAR, HUMAN 100 UNIT/1 ML 3ML VIAL SQ SCH ×4 (07:30→21:00)
[2020-07-30] MEDS: MINOXIDIL 2.5 MG TAB PO SCH ×2 (09:00→16:57)
[2020-07-30] MEDS: SEVELAMER CARBONATE 800 MG TAB PO SCH ×3 (09:00→16:58)
[2020-07-30] MEDS: ASPIRIN 81 MG CHEW TAB PO SCH (09:00)
[2020-07-30] MEDS: APIXAB 2.5 MG TABLET PO SCH ×2 (09:00→16:57)
[2020-07-30] MEDS: ATORVASTATIN 20 MG TAB PO SCH (09:00)
[2020-07-30] MEDS: AMIODARONE HCL 200 MG TAB PO SCH (09:00)
[2020-07-30] MEDS: NIFEDIPINE CR 30 MG TAB PO SCH (09:00)
[2020-07-30 12:58] LABS: CREATINE KINASE MB 2.9 ng/mL (0-5.0)
[2020-07-30] MEDS ORDERED: CLONAZEPAM 0.5 MG TAB PO PRN (14:00)
[2020-07-30] MEDS ORDERED: BUSPIRONE HCL 5 MG TAB PO PRN (14:00)
[2020-07-30] MEDS ORDERED: ZOLPIDEM TARTRATE 5 MG TAB PO PRN (14:00)
[2020-07-30] MEDS: DILTIAZEM HCL ER 120 MG CAP PO SCH (16:57)
[2020-07-31] VITALS: BP 157/52
[2020-07-31 04:05] VITALS: BP 159/56
[2020-07-31] MEDS: INSULIN REGULAR, HUMAN 100 UNIT/1 ML 3ML VIAL SQ SCH ×2 (07:30→11:30)
[2020-07-31 08:18] VITALS: BP 145/54
[2020-07-31 08:21] VITALS: BP 145/54
[2020-07-31] MEDS: APIXAB 2.5 MG TABLET PO SCH (09:12)
[2020-07-31] MEDS: ASPIRIN 81 MG CHEW TAB PO SCH (09:12)
[2020-07-31] MEDS: ATORVASTATIN 20 MG TAB PO SCH (09:12)
[2020-07-31] MEDS: SEVELAMER CARBONATE 800 MG TAB PO SCH ×2 (09:12→15:00)
[2020-07-31] MEDS: AMIODARONE HCL 200 MG TAB PO SCH (09:12)
[2020-07-31] MEDS: DILTIAZEM HCL ER 120 MG CAP PO SCH (09:12)
[2020-07-31] MEDS: MINOXIDIL 2.5 MG TAB PO SCH (09:12)
[2020-07-31 12:12] VITALS: BP 163/53
[2020-07-31 16:33] VITALS: BP 163/56
[2020-08-01] MEDS ORDERED: ATORVASTATIN 40 MG TAB PO SCH (09:00)
== END 2020-07-31 16:00 | disposition home health service (06) | DRG 308 ==
LOC: ER 18:24 → ERHOLD 20:37 → MED/SURG2 21:17
PROVIDERS: ADMIT Internal Medicine; ATTEND Internal Medicine
PROC: 5A1D70Z Performance of Urinary Filtration, Intermittent, Less than 6 Hours Per Day (ICD-10-PCS; principal; 2020-07-30)
DX: I48.0 Paroxysmal atrial fibrillation (principal); N18.6 End stage renal disease; I12.0 Hypertensive chronic kidney disease with stage 5 chronic kidney disease or end stage renal disease; E11.22 Type 2 diabetes mellitus with diabetic chronic kidney disease; Z99.2 Dependence on renal dialysis; I25.10 Atherosclerotic heart disease of native coronary artery without angina pectoris; E78.5 Hyperlipidemia, unspecified; Z90.49 Acquired absence of other specified parts of digestive tract; Z95.1 Presence of aortocoronary bypass graft; S92.301A Fracture of unspecified metatarsal bone(s), right foot, initial encounter for closed fracture; D63.1 Anemia in chronic kidney disease; E11.21 Type 2 diabetes mellitus with diabetic nephropathy; F41.0 Panic disorder [episodic paroxysmal anxiety]; Z20.828 Contact with and (suspected) exposure to other viral communicable diseases; Z79.4 Long term (current) use of insulin
CPT/HCPCS: 36415; 71045; 80053; 82550; 82553; 82948; 83735; 83880; 84100; 84484; 85025; 85610; 85730; 86705; 86707; 87340; 93005; 99284; J1160; J7040; U0002

== ENCOUNTER → 2020-12-06 | Day surgery (SDC) | payer MEDICARE ==
[~2020-12-06] MED LIST changes: +AMIODARONE HCL200 MG PO; +DEXTROSE 5% 250ML 250 ML IV ONE; +DILTIAZEM 24HR120 M1 PO; +FENTANYL CITRATE/PF 100MCG/2 ML INJ ONE; +GLUCAGON FOR INJ 1 MG VIAL ONE; +LIDOCAINE HCL 2% LOCAL INJ 5 ML SDV VIAL INJ ONE; +MIDAZOLAM HCL 2 MG/2 ML VIAL ONE; +NOVOLOG MI100 UNIT/1 SC; +PHENYLEPHRINE HCL 1% 10 MG/ML VIAL ONE; +PROPOFOL IV EMULSION 10 MG/ML 20 ML VIAL ONE; +SEVELAMER CARB800 MG PO; +SODIUM CHLORIDE 0.9% 500ML 500 ML ONE
[2020-12-06 13:19] LABS: BASOPHILS % 0.5 % (0.0-1.0); EOSINOPHILS # (AUTO) 0.1 (0.0-0.4); EOSINOPHILS % 1.8 % (0.0-6.0); HEMATOCRIT 27.1 % (34.2-44.1); HEMOGLOBIN 8.7 g/dL (12.0-16.0); LYMPHOCYTES # (AUTO) 1.6 (1.0-3.2); LYMPHOCYTES % 28.7 % (18.0-39.1); MEAN CORPUSCULAR HEMOGLOBIN 30.6 pg (28-32); MEAN CORPUSCULAR HGB CONC 32.1 g/dL (31-35); MEAN CORPUSCULAR VOLUME 95.4 fL (81-99); MONOCYTES # (AUTO) 0.4 (0.2-0.8); MONOCYTES % 6.6 % (4.4-11.3); NEUTROPHILS # (AUTO) 3.5 (2.1-6.9); NEUTROPHILS % 62.2 % (38.7-80.0); PLATELET COUNT 84 x10e3/uL (140-360); RED BLOOD COUNT 2.84 x10e6/uL (3.6-5.1); RED CELL DISTRIBUTION WIDTH 13.9 % (11.7-14.4)
[2020-12-06 13:29] LABS: INR 1.07; PROTHROMBIN TIME 14.5 seconds (11.9-14.5)
[2020-12-06 13:37] LABS: CALCIUM 7.6 mg/dL (8.4-10.2); CREATININE, SERUM 6.59 mg/dL (0.57-1.11)
[2020-12-06 17:30] VITALS: BP 159/68
[2020-12-06 17:32] LABS: WBC,FECAL (FECAL LACTOFERRIN) POSITIVE (NEGATIVE)
[2020-12-07 14:07] LABS: C DIFFICILE TOXIN A&B AMP PROB NEGATIVE (NEGATIVE)
== END | disposition home or self-care (01) ==
LOC: OR 12:25
PROVIDERS: ATTEND Internal Medicine Gastroenterology
DX: K29.50 Unspecified chronic gastritis without bleeding (principal); D12.2 Benign neoplasm of ascending colon; D12.3 Benign neoplasm of transverse colon; D12.5 Benign neoplasm of sigmoid colon; K29.80 Duodenitis without bleeding; B96.81 Helicobacter pylori [H. pylori] as the cause of diseases classified elsewhere; K52.9 Noninfective gastroenteritis and colitis, unspecified; K21.9 Gastro-esophageal reflux disease without esophagitis; N18.6 End stage renal disease; K31.89 Other diseases of stomach and duodenum; K63.89 Other specified diseases of intestine; K64.8 Other hemorrhoids; Z01.810 Encounter for preprocedural cardiovascular examination; Z01.812 Encounter for preprocedural laboratory examination; Z20.822 Contact with and (suspected) exposure to COVID-19; Z79.02 Long term (current) use of antithrombotics/antiplatelets; Z79.82 Long term (current) use of aspirin; Z79.4 Long term (current) use of insulin
CPT/HCPCS: 36415; 43239; 45380; 45385; 80048; 82948; 83630; 83993; 85025; 85610; 85730; 87045; 87177; 87328; 87493; 88305; 88312; 93005; J1610; J2001; J2250; J2370; J2704; J3010; J7040; J7070; U0002 ×2

== ENCOUNTER → 2020-12-26 | Outpatient (CLI) | payer MEDICARE ==
[~2020-12-26] MED LIST changes: -DEXTROSE 5% 250ML 250 ML IV ONE; -FENTANYL CITRATE/PF 100MCG/2 ML INJ ONE; -GLUCAGON FOR INJ 1 MG VIAL ONE; -LIDOCAINE HCL 2% LOCAL INJ 5 ML SDV VIAL INJ ONE; -MIDAZOLAM HCL 2 MG/2 ML VIAL ONE; -PHENYLEPHRINE HCL 1% 10 MG/ML VIAL ONE; -PROPOFOL IV EMULSION 10 MG/ML 20 ML VIAL ONE; -SODIUM CHLORIDE 0.9% 500ML 500 ML ONE
== END ==
LOC: US 10:08
PROVIDERS: ATTEND Internal Medicine Gastroenterology
DX: A04.8 Other specified bacterial intestinal infections (principal); R16.0 Hepatomegaly, not elsewhere classified
CPT/HCPCS: 76705

== ENCOUNTER 2021-01-02 20:38 | Observation (INO) | payer MEDICARE ==
[~2021-01-02] VITALS: Ht 160 cm; Wt 72.6 kg
[~2021-01-02 20:38] MED LIST changes: +DOXYCYCLINE HY100 MG PO; +FLAGYL500 MG PO
[2021-01-02] MEDS ORDERED: DILTIAZEM HCL 5 MG/ML 5 ML VIAL IV STA ×2 (21:11→22:46)
[2021-01-02 21:15] LABS: BASOPHILS % 0.7 % (0.0-1.0); EOSINOPHILS # (AUTO) 0.1 (0.0-0.4); EOSINOPHILS % 1.2 % (0.0-6.0); HEMATOCRIT 28.5 % (34.2-44.1); HEMOGLOBIN 9.3 g/dL (12.0-16.0); LYMPHOCYTES # (AUTO) 1.6 (1.0-3.2); LYMPHOCYTES % 28.2 % (18.0-39.1); MEAN CORPUSCULAR HEMOGLOBIN 32.2 pg (28-32); MEAN CORPUSCULAR HGB CONC 32.6 g/dL (31-35); MEAN CORPUSCULAR VOLUME 98.6 fL (81-99); MONOCYTES # (AUTO) 0.4 (0.2-0.8); MONOCYTES % 6.9 % (4.4-11.3); NEUTROPHILS # (AUTO) 3.5 (2.1-6.9); NEUTROPHILS % 62.8 % (38.7-80.0); PLATELET COUNT 84 x10e3/uL (140-360); RED BLOOD COUNT 2.89 x10e6/uL (3.6-5.1); RED CELL DISTRIBUTION WIDTH 14.4 % (11.7-14.4)
[2021-01-02 21:24] LABS: INR 1.15; PROTHROMBIN TIME 15.4 seconds (11.9-14.5)
[2021-01-02 21:25] LABS: PARTIAL THROMBOPLASTIN TIME 32.8 seconds (23.8-35.5)
[2021-01-02 21:32] LABS: ALANINE AMINOTRANSFERASE 12 IU/L (0-55); ALBUMIN 3.5 g/dL (3.5-5.0); ALBUMIN/GLOBULIN RATIO 0.9 (0.8-2.0); ALKALINE PHOSPHATASE 139 IU/L (40-150); ANION GAP 21.3 mmol/L (8-16); BLOOD UREA NITROGEN 54 mg/dL (7-26); BUN/CREATININE RATIO 9 (6-25); CALCIUM 7.9 mg/dL (8.4-10.2); CARBON DIOXIDE 27 mmol/L (22-29); CHLORIDE 96 mmol/L (98-107); CREATINE KINASE 182 IU/L (29-168); CREATININE, SERUM 6.31 mg/dL (0.57-1.11); EST GLOMERULAR FILTRATION RATE 7 ML/MIN (60-); GLUCOSE 283 mg/dL (74-118); POTASSIUM 4.3 mmol/L (3.5-5.1); SODIUM 140 mmol/L (136-145)
[2021-01-02] MEDS ORDERED: ASPIRIN 81 MG CHEW TAB PO ONE (22:45)
[2021-01-03] VITALS (7 sets, daily range): BP systolic 139–169; BP diastolic 57–75
[2021-01-03 07:40] LABS: CREATINE KINASE MB 2.3 ng/mL (0-5.0)
[2021-01-03 08:06] LABS: CHOL/HDL RATIO 1.9 (3.0-3.6)
[2021-01-03 14:35] LABS: CREATINE KINASE MB 2.4 ng/mL (0-5.0)
== END 2021-01-03 16:30 | disposition home or self-care (01) ==
LOC: ER 21:38 → ERHOLD 22:43 → MED/SURG 01-03 00:39
PROVIDERS: ADMIT Internal Medicine; ATTEND Internal Medicine
DX: I48.0 Paroxysmal atrial fibrillation (principal); Z79.01 Long term (current) use of anticoagulants; E11.22 Type 2 diabetes mellitus with diabetic chronic kidney disease; I12.0 Hypertensive chronic kidney disease with stage 5 chronic kidney disease or end stage renal disease; N18.6 End stage renal disease; Z99.2 Dependence on renal dialysis; Z79.899 Other long term (current) drug therapy; I25.10 Atherosclerotic heart disease of native coronary artery without angina pectoris; Z98.61 Coronary angioplasty status; Z95.1 Presence of aortocoronary bypass graft; Z20.822 Contact with and (suspected) exposure to COVID-19
CPT/HCPCS: 36415 ×2; 71045; 80053; 80061; 82550 ×2; 82553 ×2; 82948; 84484 ×2; 85025; 85610; 85730; 93005; 99284; G0378 ×2; U0002

== ENCOUNTER 2021-01-10 12:26 | Inpatient (IN) | payer MEDICARE ==
[~2021-01-10] VITALS: Ht 160 cm; Wt 72.6 kg
[2021-01-10] MEDS ORDERED: ASPIRIN 81 MG CHEW TAB PO ONE (12:30)
[2021-01-10 12:47] LABS: BASOPHILS % 0.5 % (0.0-1.0); EOSINOPHILS # (AUTO) 0.1 (0.0-0.4); EOSINOPHILS % 0.8 % (0.0-6.0); LYMPHOCYTES # (AUTO) 2.1 (1.0-3.2); LYMPHOCYTES % 27.1 % (18.0-39.1); MEAN CORPUSCULAR HEMOGLOBIN 31.7 pg (28-32); MEAN CORPUSCULAR HGB CONC 32.1 g/dL (31-35); MEAN CORPUSCULAR VOLUME 98.6 fL (81-99); MONOCYTES # (AUTO) 0.7 (0.2-0.8); MONOCYTES % 8.5 % (4.4-11.3); NEUTROPHILS # (AUTO) 4.9 (2.1-6.9); NEUTROPHILS % 62.7 % (38.7-80.0); PLATELET COUNT 129 x10e3/uL (140-360); RED BLOOD COUNT 2.84 x10e6/uL (3.6-5.1); RED CELL DISTRIBUTION WIDTH 13.7 % (11.7-14.4)
[2021-01-10 13:10] LABS: BAND NEUTROPHILS % (MANUAL) 1 %; LYMPHOCYTES % (MANUAL) 28 % (19-48); MONOCYTES % (MANUAL) 5 % (3.4-9.0); NEUTROPHILS % (MANUAL) 65 % (40-74); PLATELET ESTIMATE SLIGHTLY DECREASED; PLATELET MORPHOLOGY COMMENT FEW GIANT; RBC MORPHOLOGY COMMENT NORMAL
[2021-01-10 13:12] LABS: ALBUMIN 3.3 g/dL (3.5-5.0); ALBUMIN/GLOBULIN RATIO 0.8 (0.8-2.0); ANION GAP 22.7 mmol/L (8-16); CALCIUM 8.2 mg/dL (8.4-10.2); CREATININE, SERUM 7.37 mg/dL (0.57-1.11); POTASSIUM 4.7 mmol/L (3.5-5.1)
[2021-01-10 13:13] LABS: CREATINE KINASE MB 4.1 ng/mL (0-5.0)
[2021-01-10 16:00] VITALS: BP 170/64
[2021-01-10] MEDS: CARVEDILOL 12.5 MG TAB PO SCH (17:15)
[2021-01-10] MEDS ORDERED: DEXTROSE 50% SYRINGE 50 ML IV PRN (20:30)
[2021-01-10 20:35] VITALS: BP 125/48
[2021-01-10 21:00] VITALS: BP 125/48
[2021-01-10] MEDS ORDERED: DILTIAZEM HCL ER 120 MG CAP PO SCH (21:00)
[2021-01-10] MEDS: ATORVASTATIN 20 MG TAB PO SCH (21:26)
[2021-01-10] MEDS: INSULIN REGULAR, HUMAN 100 UNIT/1 ML 3ML VIAL SQ SCH (21:37)
[2021-01-10] MEDS: SEVELAMER CARBONATE 800 MG TAB PO SCH (21:38)
[2021-01-10 22:05] LABS: CREATINE KINASE MB 1.3 ng/mL (0-5.0)
[2021-01-11] VITALS (7 sets, daily range): BP systolic 130–166; BP diastolic 50–80
[2021-01-11 05:56] LABS: CREATINE KINASE 81 IU/L (29-168)
[2021-01-11] MEDS: INSULIN REGULAR, HUMAN 100 UNIT/1 ML 3ML VIAL SQ SCH ×4 (07:30→22:27)
[2021-01-11] MEDS: INSULIN ASPART 70/30 100 UNITS/ML VIAL SC SCH ×2 (08:00→17:00)
[2021-01-11] MEDS: CARVEDILOL 12.5 MG TAB PO SCH ×3 (09:00→17:55)
[2021-01-11] MEDS: AMIODARONE HCL 200 MG TAB PO SCH (09:32)
[2021-01-11] MEDS: SEVELAMER CARBONATE 800 MG TAB PO SCH ×3 (09:32→21:29)
[2021-01-11] MEDS: APIXAB 2.5 MG TABLET PO SCH ×2 (09:32→17:18)
[2021-01-11] MEDS: MINOXIDIL 2.5 MG TAB PO SCH ×2 (09:32→17:18)
[2021-01-11] MEDS: DOXYCYCLINE HYCLATE TABLET 100 MG TAB PO SCH ×2 (09:32→17:18)
[2021-01-11] MEDS: ASPIRIN 81 MG CHEW TAB PO SCH (09:32)
[2021-01-11] MEDS ORDERED: SODIUM CHLORIDE 0.9% 1000ML 2,000 ML ONE (09:47)
[2021-01-11] MEDS ORDERED: SODIUM CHLORIDE 0.9% 50ML 50 ML ONE (16:33)
[2021-01-11] MEDS ORDERED: IOPAMIDOL 370 MG/ML 200 ML INFUS..BTL INJ ONE (16:33)
[2021-01-11] MEDS: ATORVASTATIN 20 MG TAB PO SCH (21:29)
[2021-01-11] MEDS: DILTIAZEM HCL 180 MG CAP ER PO SCH (22:24)
[2021-01-11 22:25] LABS: CREATINE KINASE 65 IU/L (29-168)
[2021-01-12] VITALS (7 sets, daily range): BP systolic 108–169; BP diastolic 50–67
[2021-01-12] MEDS: INSULIN REGULAR, HUMAN 100 UNIT/1 ML 3ML VIAL SQ SCH ×4 (07:30→22:40)
[2021-01-12] MEDS: INSULIN ASPART 70/30 100 UNITS/ML VIAL SC SCH ×2 (08:00→17:00)
[2021-01-12] MEDS: CARVEDILOL 12.5 MG TAB PO SCH ×2 (09:00→16:22)
[2021-01-12] MEDS: AMIODARONE HCL 200 MG TAB PO SCH (09:41)
[2021-01-12] MEDS: ASPIRIN 81 MG CHEW TAB PO SCH (09:41)
[2021-01-12] MEDS: DOXYCYCLINE HYCLATE TABLET 100 MG TAB PO SCH ×2 (09:42→17:02)
[2021-01-12] MEDS: APIXAB 2.5 MG TABLET PO SCH ×2 (09:42→17:01)
[2021-01-12] MEDS: MINOXIDIL 2.5 MG TAB PO SCH ×2 (09:42→17:00)
[2021-01-12] MEDS: SEVELAMER CARBONATE 800 MG TAB PO SCH ×3 (09:42→22:00)
[2021-01-12] MEDS: LACTOBACILLUS ACIDOPHILUS CAPSULE PO SCH (17:02)
[2021-01-12] MEDS ORDERED: EPOETIN ALFA-EPBX 10,000 UNIT/ML VIAL SC SCH (18:00)
[2021-01-12] MEDS ORDERED: DILTIAZEM HCL 180 MG CAP ER PO SCH (21:00)
[2021-01-12] MEDS: ATORVASTATIN 20 MG TAB PO SCH (22:00)
[2021-01-12] MEDS: DILTIAZEM HCL 180 MG CAP ER PO SCH (22:00)
[2021-01-13] VITALS (8 sets, daily range): BP systolic 118–178; BP diastolic 45–67
[2021-01-13] MEDS: INSULIN REGULAR, HUMAN 100 UNIT/1 ML 3ML VIAL SQ SCH ×4 (07:30→21:00)
[2021-01-13] MEDS: INSULIN ASPART 70/30 100 UNITS/ML VIAL SC SCH ×2 (07:58→17:00)
[2021-01-13] MEDS: ASPIRIN 81 MG CHEW TAB PO SCH (08:58)
[2021-01-13] MEDS: AMIODARONE HCL 200 MG TAB PO SCH ×3 (08:58→09:01)
[2021-01-13] MEDS: APIXAB 2.5 MG TABLET PO SCH ×2 (08:59→17:27)
[2021-01-13] MEDS: CARVEDILOL 12.5 MG TAB PO SCH ×2 (08:59→17:00)
[2021-01-13] MEDS: LACTOBACILLUS ACIDOPHILUS CAPSULE PO SCH ×2 (08:59→17:28)
[2021-01-13] MEDS: SEVELAMER CARBONATE 800 MG TAB PO SCH ×3 (08:59→21:45)
[2021-01-13] MEDS: DOXYCYCLINE HYCLATE TABLET 100 MG TAB PO SCH ×2 (08:59→17:28)
[2021-01-13] MEDS: MINOXIDIL 2.5 MG TAB PO SCH ×2 (08:59→17:28)
[2021-01-13] MEDS ORDERED: HYDRALAZINE HCL 20 MG/ML VIAL ONE (17:44)
[2021-01-13] MEDS ORDERED: HYDRALAZINE HCL 20 MG/ML VIAL IV PRN (17:45)
[2021-01-13] MEDS: DILTIAZEM HCL 180 MG CAP ER PO SCH (21:45)
[2021-01-13] MEDS: ATORVASTATIN 20 MG TAB PO SCH (21:45)
[2021-01-14] VITALS: BP 124/55
[2021-01-14 04:00] VITALS: BP 144/58
[2021-01-14] MEDS: INSULIN REGULAR, HUMAN 100 UNIT/1 ML 3ML VIAL SQ SCH ×2 (07:30→11:30)
[2021-01-14 08:00] VITALS: BP 156/59
[2021-01-14] MEDS: INSULIN ASPART 70/30 100 UNITS/ML VIAL SC SCH (08:00)
[2021-01-14] MEDS: ASPIRIN 81 MG CHEW TAB PO SCH (08:55)
[2021-01-14] MEDS: APIXAB 2.5 MG TABLET PO SCH (08:55)
[2021-01-14] MEDS: SEVELAMER CARBONATE 800 MG TAB PO SCH (08:56)
[2021-01-14] MEDS: DOXYCYCLINE HYCLATE TABLET 100 MG TAB PO SCH (08:56)
[2021-01-14] MEDS: MINOXIDIL 2.5 MG TAB PO SCH (08:56)
[2021-01-14] MEDS: LACTOBACILLUS ACIDOPHILUS CAPSULE PO SCH (08:56)
[2021-01-14 08:59] VITALS: BP 156/59
[2021-01-14] MEDS: CARVEDILOL 12.5 MG TAB PO SCH (09:00)
[2021-01-14] MEDS ORDERED: SODIUM CHLORIDE 0.9% 1000ML 2,000 ML ONE (09:01)
[2021-01-14] MEDS ORDERED: SODIUM CHLORIDE 0.9% 1000ML 2,000 ML IV PRN (10:15)
[2021-01-14] MEDS ORDERED: MANNITOL 25% 12.5GM/50 ML VIAL IV PRN (10:15)
[2021-01-14] MEDS ORDERED: SODIUM CHLORIDE 0.9% 250ML 500 ML IV PRN (10:15)
[2021-01-14] MEDS ORDERED: ALBUMIN 25% 12.5GM 0.25 GM/ML BTL IV PRN (10:15)
[2021-01-14 12:00] VITALS: BP 149/64
== END 2021-01-14 14:48 | disposition home or self-care (01) | DRG 308 ==
LOC: ER 13:32 → ERHOLD 14:28 → MED/SURG3 15:38 → OBSVTOIN 01-12 11:23
PROVIDERS: ADMIT Internal Medicine; ATTEND Internal Medicine
PROC: 5A1D70Z Performance of Urinary Filtration, Intermittent, Less than 6 Hours Per Day (ICD-10-PCS; principal; 2021-01-11)
DX: I48.0 Paroxysmal atrial fibrillation (principal); N18.6 End stage renal disease; J90 Pleural effusion, not elsewhere classified; K76.6 Portal hypertension; I12.0 Hypertensive chronic kidney disease with stage 5 chronic kidney disease or end stage renal disease; K74.60 Unspecified cirrhosis of liver; Z99.2 Dependence on renal dialysis; R00.2 Palpitations; E78.5 Hyperlipidemia, unspecified; I25.10 Atherosclerotic heart disease of native coronary artery without angina pectoris; Z95.1 Presence of aortocoronary bypass graft; E11.22 Type 2 diabetes mellitus with diabetic chronic kidney disease; Z79.899 Other long term (current) drug therapy; Z20.822 Contact with and (suspected) exposure to COVID-19; E11.43 Type 2 diabetes mellitus with diabetic autonomic (poly)neuropathy; K31.84 Gastroparesis
CPT/HCPCS: 36415; 71045; 74177; 76705; 80053; 82550; 82553; 82948; 84484; 85025; 86704; 86706; 87340; 93005; 93306; 96372; 99284; G0378; J0360; J1815; J1817; J7030; Q9967; U0002